=== PATIENT | female | born 1980 | race Caucasian/White ===

== ENCOUNTER 2020-02-02 01:34 | Inpatient (IN) | payer BC, SELFPAY ==
[2020-02-02] VITALS (10 sets, daily range): BP systolic 94–120; BP diastolic 53–79; PULSE 67–86; RESP 16–20; TEMP 36.4–37; O2SAT 96–100; BMI 23.3
--- NOTE | 2020-02-02 02:06 | XR_ITS ---
WS: [id number] XR chest 1V portable [id number] REASON FOR EXAM: Chills FINDINGS: The heart mediastinum are normal. Comparisons were made to February 02, 2020 Overriding the left upper abdomen is a calcified density appears to be in the soft tissue. There is no pneumonia, pleural effusion, pulmonary edema, The hilum and apices are normal. XR/XR chest 1V portable [id number] IMPRESSION: Negative chest for acute findings. Calcified density overriding the left upper abdomen.
--- NOTE | 2020-02-02 02:08 | ED_ITS ---
HPI - Abdominal Pain General: Chief Complaint: Abdominal Pain Stated Complaint: abd pain Time Seen by Provider: 02/02/20 01:51 Source: patient and family Mode of arrival: ambulatory Limitations: no limitations History of Present Illness: HPI narrative: Laurel is a nice 39-year-old female who comes in complaining of abdominal pain. Abdominal pain began about 6 PM last night and is gotten progressively worse since that time. She has associated nausea and vomiting and is vomited several times. She denies any hematic emesis. She felt at one point that she may have diarrhea but has still not had a bowel movement. She denies any diarrhea or constipation, fevers or chills, vaginal discharge or bleeding, urinary frequency/urgency or dysuria. Associated Symptoms: Reports nausea and vomiting; Denies chills, coffee ground emesis, constipation, GI cramping, diarrhea, dysuria, fever(s), heartburn, hematochezia, hematuria, hematemesis, melena and syncope Related Data: Date of Last Menstrual Period: 01/22/20 Review of Systems Const: Denies: fever(s), chills, body aches, fatigue, malaise or diaphoresis Eyes: Denies: change in vision, blurry vision, blind spots, photophobia, eye discharge or eye redness ENMT: Denies: throat pain, odynophagia, hoarseness, swelling of lips/tongue, oral sores, ear or mastoid pain, ear discharge, change in hearing or nasal discharge Card: Denies: chest pain, palpitations, irregular heart rhythm, edema, lightheadedness, syncope, pre-syncope, dyspnea on exertion or orthopnea Resp: Denies: dyspnea, productive cough, non-productive cough, wheezing, hemoptysis or chest congestion GI: Reports: abdominal pain, nausea and vomiting; Denies: hematemesis, coffee ground emesis, heartburn, diarrhea, constipation, GI cramping, hematochezia or melena : Denies: flank pain, dysuria, urinary frequency, urinary urgency or hematuria Musc: Denies: neck pain, back pain, extremity pain, extremity swelling, joint pain, joint swelling, joint redness, joint warmth or joint stiffness Skin/Breast: Denies: rash, pruritus, erythema, skin tenderness or jaundice Neuro: Denies: headache(s), numbness in extremities, weakness in extremities, sensory changes, lack of coordination, difficulty walking, dizziness, vertigo, confusion, Slurred speech present or seizure-like activity [place]/Lymph: Denies: easy bruising, easy bleeding, petechiae, purpura or enlarged lymph nodes All/Imm: Denies: urticaria, throat swelling, tongue swelling, facial swelling or acute wheezing PFSH ED PFSH: Medical History Thrombocytosis Surgical History H/O splenectomy Social History Smoking and tobacco status: never smoked Female Reproductive History: Date of last menstrual period: 01/22/20 Physical Exam Const: COMMON NORMALS: no acute distress, patient oriented x3, no limitations, healthy appearing and well nourished GENERAL APPEARANCE: cooperative, well kempt and well developed HENMT: COMMON NORMALS: normocephalic, atraumatic, external ears normal, EAC's normal and Normal external nose present HEAD & SCALP: normal to inspection, normocephalic and atraumatic FACE & SINUS: normal facial exam and face symmetric NOSE: Normal external nose present and Normal nares present EXTERNAL EAR: Yes external ears normal EXTERNAL AUDITORY CANAL: EAC's normal MOUTH: Normal oral and palatal mucosa present, lip normal and tongue normal Eye: COMMON NORMALS: Equal, round and reactive pupils present and conjunctivae normal GENERAL EYE: appearance normal, both eyes and all related structures ALIGNMENT: Yes alignment normal PERIORBITAL: periorbital findings normal EYELID: eyelids normal CONJUNCTIVA: Yes conjunctivae normal SCLERA: sclerae normal PUPIL: Yes Equal, round and reactive pupils present Neck/C-Spine: COMMON NORMALS: full ROM, no lymphadenopathy, supple, no meningeal signs and no JVD GENERAL: Yes normal visual inspection and Yes trachea midline Chest: COMMONS NORMALS: normal inspection of the chest and normal palpation of entire chest wall Resp: COMMON NORMALS: normal respiratory effort, No retractions and No use of accessory muscles EFFORT & INSPECTION: Yes able to speak in complete sentences and Yes symmetric chest movement AUSCULTATION: no crackles, no rales, no rhonchi and no wheezes Cardio: COMMON NORMALS: no JVD, regular rate, regular rhythm, S1 normal heart sound present and S2 normal heart sound present RATE: regular rate RHYTHM: regular rhythm HEART SOUNDS: S1 normal heart sound present, S2 normal heart sound present, no click, no gallops, no murmurs, no rubs and abnormal split S2 GI: COMMON NORMALS: Soft to palpation and No hepatosplenomegaly present PALPATION: Yes Soft to palpation, Yes Tenderness to palpation present (GI) (Mild in the epigastric area), No Guarding due to palpation present (GI), No Rigid due to palpation, Yes No hepatosplenomegaly present, No Hernia present, No Palpable mass present and No Pulsatile mass present : COMMON NORMALS: Yes no CVA tenderness BLADDER/KIDNEY EXAM: Yes no CVA tenderness EXTERNAL FEMALE EXAM: No Hernia present Back/Pelvis: COMMON NORMALS: no CVA tenderness, thoracic and lumbar spine normal to inspection, no thoracic nor lumbar tenderness and thoraco-lumbar ROM normal Extremity: COMMON NORMALS: normal to inspection, full ROM, capillary refill normal, no joint enlargement, no clubbing, cyanosis or edema and no calf tenderness Neuro: COMMON NORMALS: patient oriented x3, CN's II-XII intact bilaterally, moves all extremities, no focal motor deficits and no sensory deficits noted MENINGEAL SIGNS: Yes no meningeal signs SPEECH: speech normal Psych: COMMON NORMALS: mental status grossly normal, Normal thought process present, cooperative, normal affect, speech normal and activity/motor behavior normal APPEARANCE: Yes well kempt SPEECH: Yes normal speech THOUGHT PROCESS: Normal thought process present Skin: COMMON NORMALS: no rashes or lesions noted, turgor normal, no jaundice, no petechiae and no mottling GENERAL SKIN EXAM: no rashes or lesions noted and turgor normal Course Vital Signs: Vital signs: Vital Signs Temperature 97.6 F 02/02/20 01:56 Pulse Rate 86 02/02/20 05:17 Respiratory Rate 16 02/02/20 05:17 Blood Pressure 120/53 02/02/20 05:17 Pulse Oximetry 100 02/02/20 05:17 MDM - Abdominal Pain MDM Narrative: Medical decision making narrative: Laurel is a nice 39-year-old female comes in with abrupt onset abdominal pain with vomiting. I discussed both ultrasound and the CT scan with radiologist who states that nothing is tremendously impressive. He thinks that the periportal edema is likely from aggressive hydration. See his addendum for details. I have reviewed the case with both Drs. Valdez and Anne they agreed to admit and consult respectively. The patient's been empirically covered for sepsis especially encapsulated gram-positive organisms. Is currently feeling better. Lab Data: Attestation: I reviewed the patient's lab results. Labs: Lab Results 02/02/20 02/02/20 02/02/20 Range/Units 01:52 01:52 01:52 WBC 24.8 H (4.0-10.0) 10^3/ uL RBC 4.15 (4.1-5.3) 10^6/u L Hgb 10.0 L (11.5-15.3) g/dL Hct 32.2 L (37.0-47.0) % MCV 77.6 L (81-99) fL MCH 24.1 L (28.0-34.0) pg MCHC 31.1 (30.0-36.0) g/dL RDW 16.2 H (12.1-15.1) % Plt Count 565 H (130-400) 10^3/c mm MPV 11.3 H (7.4-10.4) fL Neut % (Auto) 84.3 % Lymph % (Auto) 8.2 % [place] % (Auto) 6.1 % Eos % (Auto) 0.5 % Baso % (Auto) 0.4 % Neut # (Auto) 20.9 H (1.8-7.7) 10^3/u L Lymph # (Auto) 2.0 (0.8-4.8) 10^3/u L [place] # (Auto) 1.5 H (0.2-0.9) 10^3/u L Eos # (Auto) 0.1 (0.0-0.8) 10^3/u L Baso # (Auto) 0.1 (0.0-0.1) 10^3/u L Nucleated RBC % (a uto) 0 % Nucleated RBCs # 0.0 /100WBC Sodium 137 (136-145) mmol/L Potassium 4.0 (3.5-5.1) mmol/L Chloride 102 (98-107) mmol/L Carbon Dioxide 23 (22-29) mmol/L Anion Gap 16.0 (5-19) BUN 13 (6-20) mg/dL Creatinine 0.8 (0.5-0.9) mg/dL GFR Calculation 79.9 L (90-130) mL/min Glucose 180 H (65-115) mg/dL Calculated Osmolal ity 285 (285-295) mOsm/k g Lactic Acid (0.5-2.2) mmol/L Calcium 9.3 (8.5-10.5) mg/dL Total Bilirubin 0.2 (0.15-1.2) mg/dL AST 80 H (0-32) U/L ALT 41 H (0-33) U/L Alkaline Phosphata se 65 (35-105) IU/L Total Protein 7.0 (6.6-8.7) g/dL Albumin 4.8 (3.5-5.2) g/dL Globulin 2.2 (1.3-4.6) g/dL Lipase 23 (13-60) U/L HCG, Qual Negative (Negative) Urine Color (Yellow) Urine Appearance (CLEAR) Urine pH (5-7) Ur Specific Gravit y (1.005-1.030) Urine Protein (Negative) Urine Glucose (UA) (Normal) Urine Ketones (Negative) Urine Blood (Negative) Urine Nitrate (Negative) Urine Bilirubin (NEGATIVE) Urine Urobilinogen (Negative) mg/dL Ur Leukocyte Kelsey ase (Negative) H. pylori IgG Anti body (Negative) 02/02/20 02/02/20 02/02/20 Range/Units 01:52 01:52 03:50 WBC (4.0-10.0) 10^3/ uL RBC (4.1-5.3) 10^6/u L Hgb (11.5-15.3) g/dL Hct (37.0-47.0) % MCV (81-99) fL MCH (28.0-34.0) pg MCHC (30.0-36.0) g/dL RDW (12.1-15.1) % Plt Count (130-400) 10^3/c mm MPV (7.4-10.4) fL Neut % (Auto) % Lymph % (Auto) % [place] % (Auto) % Eos % (Auto) % Baso % (Auto) % Neut # (Auto) (1.8-7.7) 10^3/u L Lymph # (Auto) (0.8-4.8) 10^3/u L [place] # (Auto) (0.2-0.9) 10^3/u L Eos # (Auto) (0.0-0.8) 10^3/u L Baso # (Auto) (0.0-0.1) 10^3/u L Nucleated RBC % (a uto) % Nucleated RBCs # /100WBC Sodium (136-145) mmol/L Potassium (3.5-5.1) mmol/L Chloride (98-107) mmol/L Carbon Dioxide (22-29) mmol/L Anion Gap (5-19) BUN (6-20) mg/dL Creatinine (0.5-0.9) mg/dL GFR Calculation (90-130) mL/min Glucose (65-115) mg/dL Calculated Osmolal ity (285-295) mOsm/k g Lactic Acid 1.1 (0.5-2.2) mmol/L Calcium (8.5-10.5) mg/dL Total Bilirubin (0.15-1.2) mg/dL AST (0-32) U/L ALT (0-33) U/L Alkaline Phosphata se (35-105) IU/L Total Protein (6.6-8.7) g/dL Albumin (3.5-5.2) g/dL Globulin (1.3-4.6) g/dL Lipase (13-60) U/L HCG, Qual (Negative) Urine Color Yellow (Yellow) Urine Appearance Clear (CLEAR) Urine pH 6 (5-7) Ur Specific Gravit y 1.020 (1.005-1.030) Urine Protein Neg (Negative) Urine Glucose (UA) Norm (Normal) Urine Ketones 2+ H (Negative) Urine Blood Neg (Negative) Urine Nitrate Negative (Negative) Urine Bilirubin Neg (NEGATIVE) Urine Urobilinogen Norm (Negative) mg/dL Ur Leukocyte Kelsey ase Negative (Negative) H. pylori IgG Anti body Negative (Negative) Imaging Data ^: CXR: My impression: No acute cardiopulmonary findings. US: Radiologist's impression: [address] [address] Ultrasound Report Signed Patient: Laurel Fleming Unit #: [id number] : 1980 Age/Sex: 39 / F ADM Date: 02/02/20 Loc: ER Room/Bed: Attending Dr: Ordering Provider/Ordering MD: Gretel Portillo DO Date of Service: 02/02/20 Procedure(s): US abdomen complete* [id number] Accession Number(s): [id number] Report Number: [id number] PROCEDURE INFORMATION: Exam: US Abdomen Complete Exam date and time: 02/02/2020 5:17 AM Age: 39 years old Clinical indication: Abdominal pain; Acute TECHNIQUE: Imaging protocol: Real-time ultrasound of the abdomen with image documentation. COMPARISON: No relevant prior studies available. FINDINGS: Liver: The liver is unremarkable. Gallbladder: The gallbladder is decompressed. There are no stones. There is no wall thickening or pericholecystic fluid. Common bile duct: The common bile duct is not visible. The common hepatic duct measures 5 mm diameter. Pancreas: The visible portion of the pancreas is unremarkable. Right kidney: The right kidney is unremarkable. Left kidney: The left kidney is unremarkable. Spleen: Spleen has been removed. Aorta: The visible portion of the proximal abdominal aorta is unremarkable. Inferior vena cava: The visible portion of the proximal IVC is unremarkable. Portal venous: Portal vein is patent. US/US abdomen complete* [id number] IMPRESSION: No acute findings. Dictated By: Rudy Beckford MD Signed By: Rudy Beckford MD Signed Date/Time: 02/02/20 0539 DD/ 0537 CT Abd/Pel: Radiologist's impression: [address] [address] [address] Scan Report Signed Patient: Laurel Fleming Unit #: [id number] : 1980 Age/Sex: 39 / F ADM Date: 02/02/20 Loc: ER Room/Bed: Attending Dr: Ordering Provider/Ordering MD: Gretel Portillo DO Date of Service: 02/02/20 Procedure(s): CT abdomen pelvis w con* [id number] Accession Number(s): [id number] Report Number: [id number] PROCEDURE INFORMATION: Exam: CT Abdomen And Pelvis With Contrast Exam date and time: 02/02/2020 3:52 AM Age: 39 years old Clinical indication: Nausea and vomiting; Abdominal pain; Generalized; Prior surgery; Surgery type: Spleenectomy TECHNIQUE: Imaging protocol: Computed tomography of the abdomen and pelvis with intravenous contrast. Radiation optimization: All CT scans at this facility use at least one of these dose optimization techniques: automated exposure control; mA and/or kV adjustment per patient size (includes targeted exams where dose is matched to clinical indication); or iterative reconstruction. Contrast material: OMNI 300; Contrast volume: 95 ml; Contrast route: INTRAVENOUS (IV); COMPARISON: No relevant prior studies available. RADIATION DOSE METRICS: Total DLP (mGy-cm): 667.67 FINDINGS: Lungs: Lung bases are clear. Liver: Mild diffuse periportal edema. Intermediate density 1.7 x 1.3 cm mass in the posterior superior aspect of the right lobe of the liver just beneath the capsule. Gallbladder and bile ducts: The gallbladder is normal. There is no biliary dilation. Pancreas: The pancreas is unremarkable. Spleen: The spleen is absent. Adrenals: The adrenal glands are unremarkable. Kidneys and ureters: The kidneys are unremarkable. No hydronephrosis or stones. No ureteral dilation. Stomach and bowel: The stomach is unremarkable. There is fecalization of small bowel contents in the pelvis with a short segment of fluid distended upstream small bowel. No transition point to suggest obstruction. No can small bowel dilation. No sign of inflammation. The colon is unremarkable. Appendix: The appendix is normal. Intraperitoneal space: There is no free air or significant intraperitoneal free fluid. Vasculature: The abdominal aorta is normal. There is no aneurysm or dissection. Lymph nodes: There is no lymphadenopathy in the retroperitoneum, mesentery, pelvis or inguinal regions. Bladder: The urinary bladder is decompressed, preventing meaningful evaluation of wall thickness. Reproductive: 2 cm corpus luteum in the right ovary. No significant adnexal mass or cyst. The uterus is unremarkable. Bones/joints: Bones are unremarkable. Soft tissues: The abdominal wall is intact. CT/CT abdomen pelvis w con* [id number] IMPRESSION: 1. Fecalization of distal small bowel contents with mild fluid distention of upstream small bowel suggesting focal ileus. Obstruction is not suspected. 2. Mild diffuse periportal edema. Differential diagnosis includes passive hepatic congestion, acute viral hepatitis, cholangitis, lymphatic obstruction in the ira hepatis, and iatrogenic systemic hypervolemia. 3. Splenectomy. 4. Nonspecific right lobe liver mass. Recommend further evaluation with liver MRI. Radiation Dose CTDIVOL = (mGy): DLP = 667.67 (mGy-cm) Dictated By: Rudy Beckford MD Signed By: Rudy Beckford MD Signed Date/Time: 02/02/20507 DD/ 5 Discharge Plan Discharge Patient Disposition: Admitted As Inpatient Admit Provider: Mani Valdez Clinical Impression: Sepsis, Abdominal pain Condition: Stable Coding Level of Care Code ED Process Engineering Intern for Chg Fwd Exam Comprehensive
[2020-02-02 02:34] LABS: Basophils # 0.1 10^3/uL (0.0-0.1); Basophils % 0.4 %; Eosinophils # 0.1 10^3/uL (0.0-0.8); Eosinophils % 0.5 %; Hematocrit 32.2 % (37.0-47.0); Lymphocytes % 8.2 %; Mean Corpuscular HGB Conc 31.1 g/dL (30.0-36.0); Mean Corpuscular Hemoglobin 24.1 pg (28.0-34.0); Mean Corpuscular Volume 77.6 fL (81-99); Mean Platelet Volume 11.3 fL (7.4-10.4); Monocytes # 1.5 10^3/uL (0.2-0.9); Monocytes % 6.1 %; Neutrophils # 20.9 10^3/uL (1.8-7.7); Neutrophils % 84.3 %; Nucleated Red Blood Cells % 0 %; Platelet Count 565 10^3/cmm (130-400); Red Blood Count 4.15 10^6/uL (4.1-5.3); Red Cell Distribution Width 16.2 % (12.1-15.1); Slide Review Slide Review Perform; White Blood Count 24.8 10^3/uL (4.0-10.0)
[2020-02-02 02:38] LABS: Lactic Sepsis W/Reflex 1.1 mmol/L (0.5-2.2)
[2020-02-02 02:41] LABS: H. Pylori IgG Antibody Negative (Negative); HCG, Serum Qual Negative (Negative)
[2020-02-02 02:43] LABS: Alanine Aminotransferase 41 U/L (0-33); Albumin Level 4.8 g/dL (3.5-5.2); Alkaline Phosphatase 65 IU/L (35-105); Aspartate Amino Transferase 80 U/L (0-32); Blood Urea Nitrogen 13 mg/dL (6-20); Calcium 9.3 mg/dL (8.5-10.5); Carbon Dioxide 23 mmol/L (22-29); Chloride 102 mmol/L (98-107); Globulin 2.2 g/dL (1.3-4.6); Glomerular Filtration Rate 79.9 mL/min (90-130); Glucose 180 mg/dL (65-115); Lipase 23 U/L (13-60); Osmolality Calculated 285 mOsm/kg (285-295); Sodium 137 mmol/L (136-145); Total Bilirubin 0.2 mg/dL (0.15-1.2)
[2020-02-02] MEDS: morphine 4 mg/mL SDV 1 mL IVP (03:23)
[2020-02-02] MEDS: ondansetron 2 mg/ML SDV 2 mL 4 MG IVP ×3 (03:24→17:10)
[2020-02-02] MEDS: piperacillin-tazobactam 3.375 GM in sodium chloride 0.9% (plus) 50 ML IV ×3 (03:24→17:58)
--- NOTE | 2020-02-02 03:47 | CTR_ITS ---
PROCEDURE INFORMATION: Exam: CT Abdomen And Pelvis With Contrast Exam date and time: 02/02/2020 3:52 AM Age: 39 years old Clinical indication: Nausea and vomiting; Abdominal pain; Generalized; Prior surgery; Surgery type: Spleenectomy TECHNIQUE: Imaging protocol: Computed tomography of the abdomen and pelvis with intravenous contrast. Radiation optimization: All CT scans at this facility use at least one of these dose optimization techniques: automated exposure control; mA and/or kV adjustment per patient size (includes targeted exams where dose is matched to clinical indication); or iterative reconstruction. Contrast material: OMNI 300; Contrast volume: 95 ml; Contrast route: INTRAVENOUS (IV); COMPARISON: No relevant prior studies available. RADIATION DOSE METRICS: Total DLP (mGy-cm): 667.67 FINDINGS: Lungs: Lung bases are clear. Liver: Mild diffuse periportal edema. Intermediate density 1.7 x 1.3 cm mass in the posterior superior aspect of the right lobe of the liver just beneath the capsule. Gallbladder and bile ducts: The gallbladder is normal. There is no biliary dilation. Pancreas: The pancreas is unremarkable. Spleen: The spleen is absent. Adrenals: The adrenal glands are unremarkable. Kidneys and ureters: The kidneys are unremarkable. No hydronephrosis or stones. No ureteral dilation. Stomach and bowel: The stomach is unremarkable. There is fecalization of small bowel contents in the pelvis with a short segment of fluid distended upstream small bowel. No transition point to suggest obstruction. No can small bowel dilation. No sign of inflammation. The colon is unremarkable. Appendix: The appendix is normal. Intraperitoneal space: There is no free air or significant intraperitoneal free fluid. Vasculature: The abdominal aorta is normal. There is no aneurysm or dissection. Lymph nodes: There is no lymphadenopathy in the retroperitoneum, mesentery, pelvis or inguinal regions. Bladder: The urinary bladder is decompressed, preventing meaningful evaluation of wall thickness. Reproductive: 2 cm corpus luteum in the right ovary. No significant adnexal mass or cyst. The uterus is unremarkable. Bones/joints: Bones are unremarkable. Soft tissues: The abdominal wall is intact. CT/CT abdomen pelvis w con* [id number] IMPRESSION: 1. Fecalization of distal small bowel contents with mild fluid distention of upstream small bowel suggesting focal ileus. Obstruction is not suspected. 2. Mild diffuse periportal edema. Differential diagnosis includes passive hepatic congestion, acute viral hepatitis, cholangitis, lymphatic obstruction in the ira hepatis, and iatrogenic systemic hypervolemia. 3. Splenectomy. 4. Nonspecific right lobe liver mass. Recommend further evaluation with liver MRI. Radiation Dose CTDIVOL = (mGy): DLP = 667.67 (mGy-cm)
[2020-02-02] MEDS: iohexol 300 mg/mL 100 mL Btl IV (04:05)
[2020-02-02 04:15] LABS: Add Urine Microscopic? NO
[2020-02-02 04:20] LABS: Bilirubin Urine Neg (NEGATIVE); Blood Urine Neg (Negative); Glucose Urine UA Norm (Normal); Ketones Urine 2+ (Negative); Leukocyte Esterase Urine Negative (Negative); Nitrate Urine Negative (Negative); Protein Urine Neg (Negative); Urine Appearance Clear (CLEAR); Urine Color Yellow (Yellow); Urobilinogen Urine Norm (Negative); pH Urine 6 (5-7)
--- NOTE | 2020-02-02 06:03 | PM.CONSULT ---
Providers/Reason For Consult Consulting Physican/Specialty*: Liang Malhotra MD Reason for Consult*: Abdominal pain Requesting Physcian: Dr. 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 General surgery was consulted for further evaluation of the patient due to her abdominal pain Upon further inquiry the patient and her spouse confirmed that she has been updated on her triple vaccines she did receive prior to her elective splenectomy her spouse keeping a log for that. Blood work patient was found to have leukocytosis and there is a concern of potential infection due to the patient's history of splenectomy. Patient denies any fevers or chills at this at she does report some nausea Patient was seen and evaluated in the emergency department room (7). Ultrasound of the liver and gallbladder FINDINGS: Liver: The liver is unremarkable. Gallbladder: The gallbladder is decompressed. There are no stones. There is no wall thickening or pericholecystic fluid. Common bile duct: The common bile duct is not visible. The common hepatic duct measures 5 mm diameter. Pancreas: The visible portion of the pancreas is unremarkable. Right kidney: The right kidney is unremarkable. Left kidney: The left kidney is unremarkable. Spleen: Spleen has been removed. Aorta: The visible portion of the proximal abdominal aorta is unremarkable. Inferior vena cava: The visible portion of the proximal IVC is unremarkable. Portal venous: Portal vein is patent. US/US abdomen complete* [id number] IMPRESSION: No acute findings. CT scan of the abdomen and pelvis showed Lungs: Lung bases are clear. Liver: Mild diffuse periportal edema. Intermediate density 1.7 x 1.3 cm mass in the posterior superior aspect of the right lobe of the liver just beneath the capsule. Gallbladder and bile ducts: The gallbladder is normal. There is no biliary dilation. Pancreas: The pancreas is unremarkable. Spleen: The spleen is absent. Adrenals: The adrenal glands are unremarkable. Kidneys and ureters: The kidneys are unremarkable. No hydronephrosis or stones. No ureteral dilation. Stomach and bowel: The stomach is unremarkable. There is fecalization of small bowel contents in the pelvis with a short segment of fluid distended upstream small bowel. No transition point to suggest obstruction. No can small bowel dilation. No sign of inflammation. The colon is unremarkable. Appendix: The appendix is normal. Intraperitoneal space: There is no free air or significant intraperitoneal free fluid. Vasculature: The abdominal aorta is normal. There is no aneurysm or dissection. Lymph nodes: There is no lymphadenopathy in the retroperitoneum, mesentery, pelvis or inguinal regions. Bladder: The urinary bladder is decompressed, preventing meaningful evaluation of wall thickness. Reproductive: 2 cm corpus luteum in the right ovary. No significant adnexal mass or cyst. The uterus is unremarkable. Bones/joints: Bones are unremarkable. Soft tissues: The abdominal wall is intact. CT/CT abdomen pelvis w con* [id number] IMPRESSION: 1. Fecalization of distal small bowel contents with mild fluid distention of upstream small bowel suggesting focal ileus. Obstruction is not suspected. 2. Mild diffuse periportal edema. Differential diagnosis includes passive hepatic congestion, acute viral hepatitis, cholangitis, lymphatic obstruction in the ira hepatis, and iatrogenic systemic hypervolemia. 3. Splenectomy. 4. Nonspecific right lobe liver mass. Recommend further evaluation with liver MRI. Review of Systems General: Reports: 10 or more systems reviewed and unremarkable except in HPI and below Meds/Allergies Home Medications and Allergies Home Medications Medication Instructions Recorded Confirmed Last Taken Type No Known Home Medications 02/02/20 02/02/20 Unknown History Allergies Allergy/AdvReac Type Severity Reaction Status Date / Time No Known Allergies Allergy Verified 02/02/20 12:57 PFSH Acute PFSH: Medical History Thrombocytosis Surgical History H/O splenectomy Family History Father Cancer Sarcoma Leukemia Social History Smoking and tobacco status: never smoked Alcohol intake: current Alcohol intake frequency: holidays/special occasions only Substance/Drug Use: never Household members: spouse Marital status: Current occupational status: other 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 Female Reproductive History: Date of last menstrual period: 01/22/20 Vitals/I&O/Wt Last Vital Signs Temp 97.6 F 02/02/20 01:56 Pulse 86 02/02/20 05:17 Resp 16 02/02/20 05:17 BP 120/53 02/02/20 05:17 Pulse Ox 100 02/02/20 05:17 Weight last 48 hrs Weight 158 lb Physical Exam Narrative: EXAM NARRATIVE: Patient is conscious alert oriented X3 BMI 23 Head and neck examination PERRLA no masses no cervical lymphadenopathy no jaundice Cardiac examination audible S1-S2 no murmurs no gallops no arrhythmias Chest is clear bilateral,abscence of Rhonchi or wheezes,no surgical emphysema Abdomen mildly tender nondistended soft no organomegaly guarding or rigidity/no signs of peritonitis Extremities no cyanosis no clubbing no edema Data Micro: Micro: Microbiology 02/02/20 03:30 Blood Culture - Pr eliminary Blood SPECIMEN [facility] 02/02/20 01:52 Blood Culture - Pr eliminary Blood SPECIMEN [facility] A&P Assessment and plan (1) Abdominal pain: After thorough history physical examination and reviewing the chart and CT scan images with my personal interpretation,likley the patient's abdominal pain due to Fecalization of the small bowel and chronic constipation.. I would highly recommend to start the patient on mag citrate a bottle every 8 hours, if patient started to have nausea NG tube can be placed and mag citrate can be installed via the NG tube. I would refrain from performing enemas on splenectomized or any other immunocompromised patients to avoid abrasions or potential trauma of the anal area that can potentially cause bloodstream infection. We will continue to follow with repeated physical examination With regard to the leukocytosis could be due to different reasons postsplenectomy, dehydration and potential underlying infection yet I am not appreciating acute surgical abdomen at this explain patient's leukocytosis, further work-up may include ruling out other medical causes will defer to hospitalist service with that regard. Assurance and education All questions have been answered and all concerns have been addressed to patient's satisfaction. Status: Acute Qualifiers: Abdominal location: generalized Qualified Code(s): R10.84 - Generalized abdominal pain Consult Attestations Medical Necessity Statement: Per hospitalist service Time Spent in Patient Care: 16 - 35 minutes (>than 50% of time spent in counselling and/or direct pt care on unit). 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
[2020-02-02] MEDS: metroNIDAZOLE IV 500 MG/100 ML PREMIX 100 MG IV (06:18)
[2020-02-02 06:22] LABS: Acetaminophen < 5.0 ug/mL (10-30); Alcohol Level < 10 mg/dL (0-10)
--- NOTE | 2020-02-02 06:35 | PM.HP ---
Providers/Chief Complaint Admitting Physician: Mani Valdez Chief Complaint: abd pain History of Present Illness Laurel Fleming is a 39 year old female with history of splenectomy, thrombocytosis for which she is on ASA 81mg, came to the hospital after feeling unwell immediately after eating a dinner of broccoli and rice (broccoli cooked night before, rice same night), with nausea, vomiting, malaise, feeling weak and cold. Subsequently reportedly found her by the toilet passed out, which she thinks she had letter sent down to the ground, but is not sure. then witnessed about episode of what he thought was perhaps a seizure, where she became somewhat unresponsive had difficulty speaking, was shaking all over, although did ask what is happening to me just before the end of the episode. She denies any fever at home. She denies eating out anywhere. Her other meal included a meal tray with a fish fillet which also came with some rice earlier in the day. She otherwise has been in baseline state of health. Of note on closer questioning later she also admitted that she had teeth cleaning done on Wednesday. In ER she is noted with very high leukocytosis, 24.8, with neutrophilia. She is afebrile, however, still having malaise. Abdominal pain has since resolved. Pain was previously periumbilical to epigastric. and she has been concerned whether aspirin may have caused some ulcer or gastritis. CT abdomen pelvis was obtained with severe constipation and fecal isolation of distal small intestine. Also noted periportal edema of unclear etiology as well as liver lesion which per discussion with radiologist is thought to be perhaps hemangioma or other benign etiology. Per discussion with family states that she has had history of liver hemangioma in the past. Abdominal ultrasound was obtained and is pending. Blood cultures were collected and she is empirically started on antibiotics. There is mild AST and ALT elevation noted. Hepatitis panel was requested. Review of Systems Const: Denies: fever(s), chills, body aches or malaise Eyes: Denies: change in vision or eye redness ENMT: Denies: throat pain, oral sores or ear or mastoid pain Card: Denies: chest pain, edema, pre-syncope or dyspnea on exertion Resp: Denies: dyspnea, productive cough, change in phlegm color or hemoptysis GI: Denies: abdominal pain, nausea, vomiting, diarrhea, constipation, hematochezia or melena : Denies: flank pain, urinary frequency or hematuria Musc: Denies: back pain, joint swelling or joint redness Skin/Breast: Denies: rash, sores or new lesions Neuro: Denies: headache(s), numbness in extremities, weakness in extremities, dizziness, confusion or seizure-like activity Endo: Denies: polyuria or polydipsia Jenaro/Lymph: Denies: easy bleeding or purpura All/Imm: Denies: urticaria, throat swelling or tongue swelling Medications/Allergies Home Medications Medication Instructions Recorded Confirmed Last Taken Type No Known Home Medications 02/02/20 02/02/20 Unknown History Allergies Allergy/AdvReac Type Severity Reaction Status Date / Time No Known Allergies Allergy Verified 02/02/20 02:00 PFSH Acute PFSH: Medical History Thrombocytosis Surgical History H/O splenectomy Family History Father Cancer Sarcoma Leukemia Social History Smoking and tobacco status: never smoked Alcohol intake: current Alcohol intake frequency: holidays/special occasions only Substance/Drug Use: never Household members: spouse Marital status: Current occupational status: other 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 Female Reproductive History: Date of last menstrual period: 01/22/20 Vitals/I&O/Wt Last Vital Signs Temp 97.6 F 02/02/20 01:56 Pulse 86 02/02/20 05:17 Resp 16 02/02/20 05:17 BP 115/56 02/02/20 06:00 Pulse Ox 98 02/02/20 06:00 Weight last 48 hrs Weight 71.668 kg Physical Exam Const: COMMON NORMALS: no acute distress and patient oriented x3 OTHER: Malaise HENMT: COMMON NORMALS: oropharynx normal Neck/C-Spine: COMMON NORMALS: no JVD Resp: COMMON NORMALS: normal respiratory effort and clear to auscultation bilaterally AUSCULTATION: clear to auscultation bilaterally Cardio: COMMON NORMALS: no JVD, regular rhythm, S1 normal heart sound present, S2 normal heart sound present and No murmurs present (Cardio) RHYTHM: regular rhythm HEART SOUNDS: S1 normal heart sound present and S2 normal heart sound present GI: COMMON NORMALS: Normal to inspection, nondistended, normoactive bowel sounds present, Soft to palpation and non-tender PALPATION: Yes Soft to palpation Extremity: COMMON NORMALS: no joint enlargement and no pedal edema Neuro: COMMON NORMALS: patient oriented x3 and moves all extremities Skin: COMMON NORMALS: no rashes or lesions noted GENERAL SKIN EXAM: no rashes or lesions noted Data : 02/02/20 01:52 02/02/20 01:52 Micro: Microbiology 02/02/20 03:30 Blood Culture - Preliminary Blood SPECIMEN COLLECTED 02/02/20 01:52 Blood Culture - Preliminary Blood SPECIMEN COLLECTED A&P Assessment and plan (1) Sepsis: She does not strictly fit sepsis criteria, suspicion is very high for developing sepsis, with leukocytosis 24.8, respiratory rate of 20, severe malaise, nausea, vomiting, with history of splenectomy. With episode of altered mental status at home (syncope versus seizure). Blood cultures collected. Lactic acid is normal. She is started on Zosyn and vancomycin empirically at this time. Nausea and vomiting at home, malaise may have been secondary to preformed toxin as her symptoms started right after eating a meal consisting of broccoli and rice (broccoli cooked the day before), however, there are number of other complicating historical factors including that she had her teeth cleaned on Wednesday and in the setting of aspleni is at high risk for overwhelming bacterial infection. There is also severe constipation, with fecalization of small intestine. Appreciate surgical assessment. This certainly sometimes can contribute to leukocytosis, nausea, vomiting, malaise. Continue IV hydration. Bowel regimen. Status: Acute Qualifiers: Sepsis acute organ dysfunction status: without acute organ dysfunction Sepsis type: sepsis due to unspecified organism Qualified Code(s): A41.9 - Sepsis, unspecified organism (2) Abdominal pain: Nausea, vomiting, periumbilical to epigastric abdominal tenderness/pain, currently resolved, but still persistent malaise. As has stated certainly aspirin could contribute sometimes to gastritis, PUD, although should not necessarily cause other findings we are seeing. Add PPI. Also obstipation as above. Periportal edema noted on CT incidentally. Appreciate surgical evaluation. Per discussion with radiology this is rather nonspecific, no signs of acute liver inflammation. She did have a possibly syncopal episode at home, however, does not have tenderness on exam to suggest external liver contusion, no bleeding noted on CT. Follow elevated liver parameters. Status: Acute Qualifiers: Abdominal location: generalized Qualified Code(s): R10.84 - Generalized abdominal pain (3) H/O splenectomy: With concern for malignant disease initially, but benign findings on pathology. 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 Due to this she takes a low-dose aspirin. Status: Acute (5) Syncope: Syncopal episode versus a seizure at home. states lasting perhaps about 30 seconds during which time she was unresponsive, shaking, eyes rolling back in her head. She apparently did ask what is happening to me at the end of the episode, although then still had trouble speaking for little bit. This has not recurred so far. Monitor. Maintain seizure precautions. Will assess plain CT of the head for now. Consider additional evaluation by MRI. This may be related to sepsis and acute condition so for now we will treat as above, not yet initiate antiepileptic. Status: Acute (6) Transaminitis: Possibly stress related, nausea, vomiting. Reassess. Acetaminophen and alcohol level were ordered. Hepatitis panel was ordered. There is nonspecific periportal edema of unclear etiology. Please follow studies above. Please follow final ultrasound report. Consider additional studies depending on clinical condition. This may be edema simply due to fluid resuscitation. Status: Acute (7) Liver lesion: Intermediate density 1.7 x 1.3 cm mass in the posterior superior aspect of the right lobe of the liver. Prescription with radiology probably benign, possibly hemangioma. Did not appear like liver abscess. Please follow-up final abdominal ultrasound study. Please consider additional evaluation, possibly MRI depending on clinical findings. does relate that she has history of liver hemangioma in the past. 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
[2020-02-02 06:43] LABS: Hepatitis A Antibody IgM Non-Reactive (Nonreactive); Hepatitis B Core AB, Total Non-Reactive (Nonreactive); Hepatitis B Surface AB 3.5 (0-8.5); Hepatitis B Surface Antigen Non-Reactive (Nonreactive); Hepatitis C Virus Antibody Non-Reactive (Nonreactive)
--- NOTE | 2020-02-02 06:48 | CT_ITS ---
WS: [id number] CT head wo con* [id number] REASON FOR EXAM: fall, possible seizure IV CONTRAST ADMINISTERED: None. TOTAL EXAM DLP: 880.[address] scans at [facility] use at least one of these dose optimization techniques: automat ed exposure control; mA and/or kV adjustment per patient size (includes targeted exams where dose is matched to clinical indication); or iterative reconstruction. FINDINGS: The velasco and white matter interfaces are normal. No evidence of hemorrhage, infarction, or mass effect. The ventricles are normal no paraventricular changes are seen. The hippocampus show no abnormalities. The peripheral brain show no abnormalities or hemorrhage. The posterior fossa show normal sonny and cerebellum. The paranasal sinuses are all normal. C1-C2 normal. The orbits show no abnormalities. The pituitary was normal. The mastoid air cells were all normal. CT/CT head wo con* [id number] IMPRESSION: Normal CT of the brain
[2020-02-02] MEDS: heparin 5,000 unit/mL INJ 1 mL 5000 UNIT SUBCUT ×2 (07:39→17:11)
[2020-02-02] MEDS: dextrose 5%-sod chloride 0.45% 1,000 ML 100 ML IV ×2 (07:42→17:18)
[2020-02-02 08:01] LABS: Procalcitonin 0.05 ng/mL (0-0.5)
--- NOTE | 2020-02-02 09:44 | PC.CHAP ---
Pastoral Care Encounter/Spiritual Assessment Type of Contact [] Declined newswriter visit [] Patient/Family/Request visit [] Outpatient visit [] Follow-up visit [] Physician referral [] Code/Alert [x] Routine visit [] Staff referral [] Actively dying [] Patient sleeping [] Family support [] [] Out of room [] Palliative care [] [] Receiving care in room [] Pre-surgical visit [] Trauma [] Long length of stay [] ICU visit [] Other: Relational/Emotional Strength [] Patient feels connected with others/family/visitors/staff [] Distress [] Loneliness/isolation [] Abandonment Spirituality of Patient [] Person of Lori [] Attends Jew of their Lori [] Believes in Prayer [] Reads Bible or Orthodoxy materials [] There are Spiritual issues to be addressed Manager Statistics Interventions [x] Prayer [] Active listening [] Non-anxious presence [] Spiritual/emotional support [] Crisis/trauma care [] Spiritual counseling [] Bereavement support [] Provided bereavement packet [] Provided Bible/devotional materials [] Provided toy/stuffed animal, coloring book to patient or family member [] Provided Communion [] Anointing/[place] [] Salvation [x] Completed spiritual assessment [] Other: Impact on Illness or Injury [] Angry [] Fearful [] Anxious [] Often cries [] Exhaustion [] Unable to work [] Unable to attend synagogue [] Unable to walk/stand [] Unable to read [] Unable to drive [] Unable to eat/drink [] Unable to sleep [] Unable to be with family [] Patient intubated [] Other: Summary Patient a little cold- staff turned up heat and delivered an additional blanket. Patient received some medication to help with pain, waiting to see if it will help. Time spent with patient 10 min
--- NOTE | 2020-02-02 11:47 | PM.PN ---
Subjective Subjective: Interval history: Overnight labs and H&P reviewed. 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 With episode of altered mental status at home (syncope versus seizure). Blood negtaive to date. Continue Zosyn and vancomycin empirically at this time while undergoing sepsis w/up . There is also severe constipation, with fecalization of small intestine. Appreciate surgical assessment. Status: Acute Qualifiers: Sepsis acute organ dysfunction status: without acute organ dysfunction Sepsis type: sepsis due to unspecified organism Qualified Code(s): A41.9 - Sepsis, unspecified organism (2) Abdominal pain: Nausea, vomiting, periumbilical to epigastric abdominal tenderness/pain, currently resolved, but still persistent malaise. Periportal edema noted on CT incidentally. Appreciate surgical evaluation. Per discussion with radiology this is rather nonspecific, no signs of acute liver inflammation. Status: Acute Qualifiers: Abdominal location: generalized Qualified Code(s): R10.84 - Generalized abdominal pain (3) H/O splenectomy: With concern for malignant disease initially, but benign findings on pathology. 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 Due to this she takes a low-dose aspirin. Status: Acute (5) Syncope: Syncopal episode versus a seizure at home. states lasting perhaps about 30 seconds during which time she was unresponsive, shaking, eyes rolling back in her head. She apparently did ask what is happening to me at the end of the episode, although then still had trouble speaking for little bit. This has not recurred so far. Monitor. Maintain seizure precautions. CT head negative for acute pathology Status: Acute (6) Transaminitis: Possibly stress related, nausea, vomiting. Reassess. Acetaminophen and alcohol level were ordered. Hepatitis panel was ordered. There is nonspecific periportal edema of unclear etiology. Please follow studies above. Please follow final ultrasound report. Consider additional studies depending on clinical condition. This may be edema simply due to fluid resuscitation. Status: Acute (7) Liver lesion: Intermediate density 1.7 x 1.3 cm mass in the posterior superior aspect of the right lobe of the liver. Prescription with radiology probably benign, possibly hemangioma. Did not appear like liver abscess. Please follow-up final abdominal ultrasound study. Please consider additional evaluation, possibly MRI depending on clinical findings. does relate that she has history of liver hemangioma in the past. 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
[2020-02-02] MEDS: magnesium citrate Btl 296 mL PO ×2 (12:03→20:18)
[2020-02-02 12:55] LABS: Alkaline Phosphatase 95 IU/L (35-105); Anion Gap 15.1 (5-19); Blood Urea Nitrogen 9 mg/dL (6-20); Calcium 8.6 mg/dL (8.5-10.5); Carbon Dioxide 20 mmol/L (22-29); Chloride 104 mmol/L (98-107); Globulin 2.2 g/dL (1.3-4.6); Glomerular Filtration Rate 93.2 mL/min (90-130); Glucose 144 mg/dL (65-115); Osmolality Calculated 279 mOsm/kg (285-295); Potassium 4.1 mmol/L (3.5-5.1); Sodium 135 mmol/L (136-145); Total Bilirubin 0.5 mg/dL (0.15-1.2); Total Protein 6.2 g/dL (6.6-8.7)
[2020-02-02 13:06] LABS: Alanine Aminotransferase 788 U/L (0-33)
[2020-02-02 13:09] LABS: Aspartate Amino Transferase 1014 U/L (0-32)
[2020-02-02 15:30] LABS: Ammonia 36 umol/L (11-51); Lactate (Lactic Acid level) 0.6 mmol/L (0.5-2.2)
[2020-02-02 15:48] LABS: Alkaline Phosphatase 98 IU/L (35-105); Globulin 2.5 g/dL (1.3-4.6); Total Bilirubin 0.5 mg/dL (0.15-1.2); Total Protein 6.5 g/dL (6.6-8.7)
[2020-02-02 15:51] LABS: Monoscreen Negative (Negative)
[2020-02-02 16:19] LABS: Alanine Aminotransferase 766 U/L (0-33)
[2020-02-02 16:22] LABS: Aspartate Amino Transferase 914 U/L (0-32)
[2020-02-02 16:36] LABS: INR 1.11 (0.8-1.2)
[2020-02-02 18:27] LABS: Lactate Dehydrogenase 576 U/L (135-214)
[2020-02-03] VITALS: BP 115/72; PULSE 77; RESP 16; TEMP 36.8; O2SAT 99
[2020-02-03] MEDS: heparin 5,000 unit/mL INJ 1 mL 5000 UNIT SUBCUT ×4 (00:23→23:23)
[2020-02-03 01:19] LABS: Influenza A by IFA Negative (Negative); Influenza B by IFA Negative (Negative)
[2020-02-03] MEDS: piperacillin-tazobactam 3.375 GM in sodium chloride 0.9% (plus) 50 ML IV ×2 (03:32→11:15)
[2020-02-03] MEDS: dextrose 5%-sod chloride 0.45% 1,000 ML 100 ML IV ×3 (03:38→23:23)
[2020-02-03 04:00] VITALS: BP 115/72; PULSE 77; RESP 16; TEMP 36.8; O2SAT 99
[2020-02-03 05:09] LABS: Basophils # 0.1 10^3/uL (0.0-0.1); Basophils % 0.8 %; Eosinophils # 0.1 10^3/uL (0.0-0.8); Eosinophils % 0.6 %; Hematocrit 29.6 % (37.0-47.0); Lymphocytes # 1.7 10^3/uL (0.8-4.8); Lymphocytes % 19.6 %; Mean Corpuscular HGB Conc 30.4 g/dL (30.0-36.0); Mean Corpuscular Hemoglobin 23.2 pg (28.0-34.0); Mean Corpuscular Volume 76.3 fL (81-99); Monocytes # 1.1 10^3/uL (0.2-0.9); Monocytes % 12.5 %; Neutrophils # 5.8 10^3/uL (1.8-7.7); Neutrophils % 66.3 %; Nucleated Red Blood Cells % 0 %; Platelet Count 504 10^3/cmm (130-400); Red Blood Count 3.88 10^6/uL (4.1-5.3); Red Cell Distribution Width 16.5 % (12.1-15.1); White Blood Count 8.7 10^3/uL (4.0-10.0)
[2020-02-03 05:24] LABS: INR 1.12 (0.8-1.2)
[2020-02-03 05:36] LABS: Alanine Aminotransferase 567 U/L (0-33); Albumin Level 3.9 g/dL (3.5-5.2); Alkaline Phosphatase 90 IU/L (35-105); Anion Gap 14.7 (5-19); Aspartate Amino Transferase 375 U/L (0-32); Blood Urea Nitrogen 4 mg/dL (6-20); Calcium 8.8 mg/dL (8.5-10.5); Carbon Dioxide 21 mmol/L (22-29); Chloride 109 mmol/L (98-107); Globulin 2.3 g/dL (1.3-4.6); Glomerular Filtration Rate 93.2 mL/min (90-130); Glucose 110 mg/dL (65-115); Osmolality Calculated 288 mOsm/kg (285-295); Potassium 3.7 mmol/L (3.5-5.1); Sodium 141 mmol/L (136-145); Total Bilirubin 0.2 mg/dL (0.15-1.2); Total Protein 6.2 g/dL (6.6-8.7)
--- NOTE | 2020-02-03 06:30 | P.PN_ITS ---
Subjective Subjective: Interval history: Patient overall feels much better She responded very well to mag citrate Liver function tests are trending down and normalization of leukocytosis Vitals/I&O/Wt Last Vital Signs Temp 98.3 F 02/03/20 04:00 Pulse 77 02/03/20 04:00 Resp 16 02/03/20 04:00 BP 115/72 02/03/20 04:00 Pulse Ox 99 02/03/20 04:00 02/02/20 02/02/20 02/03/20 14:59 22:59 06:59 Intake Total 706.667 / 815.176 5885 / 3232.092 4926 / 3611.667 Output Total 400 / 400 700 / 1100 600 / 1700 Balance 306.667 / 306.667 485 / 482.364 2736 / 1911.667 Weight last 48 hrs Weight 158 lb Physical Exam Narrative: EXAM NARRATIVE: Patient is conscious alert oriented X3 BMI 23 Head and neck examination PERRLA no masses no cervical lymphadenopathy no jaundice Abdomen nontender nondistended soft no organomegaly guarding or rigidity/no signs of peritonitis Data : 02/03/20 03:09 02/03/20 03:09 Micro: Microbiology 02/02/20 03:30 Blood Culture - Preliminary Blood NEGATIVE TO DATE 02/02/20 01:52 Blood Culture - Preliminary Blood NEGATIVE TO DATE A&P Assessment and plan (1) Abdominal pain: From surgical standpoint of view advance diet as tolerated with low-fat component Patient responded very well to mag citrate and was able to have multiple bowel movements Patient reported that she started an intense physical exercise program few days ago and afterwards she started to feel worse likely she got dehydrated. Continue stool softeners and will hold off on mag citrate From surgical standpoint of view i patient tolerates well p.o. intake and cleared from medical side can be discharged home and follow-up with me at the surgery office. Thank you for consulting general surgery to participate taking care Ms. Fleming Assurance and education All questions have been answered and all concerns have been addressed to patient's satisfaction. Status: Acute Qualifiers: Abdominal location: generalized Qualified Code(s): R10.84 - Generalized abdominal pain Attestations Medical Necessity Statement*: Per hospitalist service Time Spent in Patient Care: (>than 50% of time spent in counselling and/or direct pt care on unit) . Coding Level of Care Code Acute Exhibit Display Representative for Chg Fwd Diagnoses Abdominal pain R10.84 Abdominal location: generalized
[2020-02-03 06:41] LABS: HIV 1 & 2 Antibody Non-Reactive (Non-Reactiv); HIV 1 & 2 Antigen Non-Reactive (Non-Reactiv)
[2020-02-03 07:30] VITALS: BP 118/73; PULSE 70; RESP 18; TEMP 36.7; O2SAT 97
--- NOTE | 2020-02-03 11:23 | PC.CHAP ---
Pastoral Care Encounter/Spiritual Assessment Type of Contact [] Declined rental clerk visit [] Patient/Family/Request visit [] Outpatient visit [] Follow-up visit [] Physician referral [] Code/Alert [] Routine visit [X] Staff referral [] Actively dying [] Patient sleeping [] Family support [] [] Out of room [] Palliative care [] [] Receiving care in room [] Pre-surgical visit [] Trauma [] Long length of stay [] ICU visit [] Other: Relational/Emotional Strength [X] Patient feels connected with others/family/visitors/staff [] Distress [] Loneliness/isolation [] Abandonment Spirituality of Patient [X] Person of Lori [] Attends Sabianist of their Lori [X] Believes in Prayer [] Reads Bible or Methodist materials [] There are Spiritual issues to be addressed Dehairing Machine Tender Interventions [X] Prayer [X] Active listening [X] Non-anxious presence [] Spiritual/emotional support [] Crisis/trauma care [] Spiritual counseling [] Bereavement support [] Provided bereavement packet [] Provided Bible/devotional materials [] Provided toy/stuffed animal, coloring book to patient or family member [] Provided Communion [] Anointing/[place] [] Salvation [X] Completed spiritual assessment [] Other: Impact on Illness or Injury [] Angry [] Fearful [X] Anxious [] Often cries [] Exhaustion [] Unable to work [] Unable to attend christianity [] Unable to walk/stand [] Unable to read [] Unable to drive [] Unable to eat/drink [] Unable to sleep [] Unable to be with family [] Patient intubated [] Other: Summary: Nurse asked if I was willing to gown up to see this patient. Patient had an acute episode of abdominal pain. No cause yet determined but a few labs had been elevated (liver enzymes and WBCs) per patient report. These labs are now decreasing, and she is feeling better. She is baffled and concerned about what might have caused the pain; she hopes for an answer. She is also pending COVID testing so while it seems unlikely, she is nervous while those results are pending. Time spent with patient: 20 - 30 mins
[2020-02-03 11:26] VITALS: BP 121/74; PULSE 65; RESP 18; TEMP 36.9; O2SAT 99
[2020-02-03 14:40] LABS: Coronavirus Lab Test PTC SEE REPORT
[2020-02-03 15:42] VITALS: BP 110/73; PULSE 66; RESP 18; TEMP 36.9; O2SAT 98
--- NOTE | 2020-02-03 19:30 | P.PN_ITS ---
Subjective Subjective: Interval history: Improving Liver function today, reports that nausea is resolved, able to have multiple bowel movements today. Appetite is back, she is able to tolerate po intake today. 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 Due to this she takes a low-dose aspirin. Status: Acute (5) Syncope: Status: Acute Qualifiers: Syncope type: unspecified Qualified Code(s): R55 - Syncope and collapse (6) Liver lesion: Intermediate density 1.7 x 1.3 cm mass in the posterior superior aspect of the right lobe of the liver. Per with radiology probably benign, possibly hemangioma. Did not appear like liver abscess. Please follow-up final abdominal ultrasound study. Please consider additional evaluation, possibly MRI depending on clinical findings. does relate that she has history of liver hemangioma in the past. Status: Acute (7) Leukocytosis, unspecified: Status: Acute Qualifiers: Leukocytosis type: unspecified Qualified Code(s): D72.829 - Elevated white blood cell count, unspecified (8) Constipation: Status: Acute Qualifiers: Constipation type: unspecified constipation type Qualified Code(s): K59.00 - Constipation, unspecified (9) Ileus, unspecified: Status: Acute Additional A&P Information Patient admitted with c/o abdominal pain, nausea, vomiting and possible syncope. During course of evaluation found to have focal ileus, myrna portal edema and acute hepatitis # Acute hepatitis Unclear etiology - Acute hepatitis panel incl hep A IgM, HbS Ag, HepB core Ab, and Hep C Ab negative. Hiv negative. Monospot negative. COVID 19 negative. Appears that hepatitis may still be viral hepatitis, k[place] given other findings of abdominal p ain, nausea, vomiting, which togethe may represnt viral gatsroenteritides. - May have been related to preformed toxins in frozen food - Autoimmune screen pending - Patient reports starting an intense exercise regimen one week prior and feels she sargent snot adequately hydrate. Possible that dehydration from this or hypotension during her syncopal episode may have caused a transient hepatic injury. - Above discussed with GI/hepatology construction technology instructor at [facility], labs not c/w acute hepatic failure. - LFTs trending down today, ,will continue to monitor -patient reports clinical improvement today # constipation, resolved after mag citrate # Syncope: appears to be vasovagal episode per reported history # incidental hepatic lesion whch appears to be hemangioma: outpatient work up an d follow up # H/o splenectomy and thrombocytosis # Leukocytosis, given h/o splenectomy, initially concern for sepsis, however given that WBC count has trended down quickly, blood culture is negative, she is afebrile, more likely that this may have been a stress reaction vs 2/2 dehydration D/c antibiotics today and monitor off abx for the next 24 hrs Full code Attestations Medical Necessity Statement*: Trending liver enzymes, monitoring off abx in post splenectomy patient with leukocytosis Coding Level of Care Code Acute Oracle Bpm Consultant for [facility] Fwd Diagnoses Acute hepatitis B17.9 Abdominal pain R10.84 Abdominal location: generalized H/O splenectomy Z90.81 Thrombocytosis D47.3 Syncope R55 Syncope type: unspecified Liver lesion K76.9 Leukocytosis, unspecified D72.829 Leukocytosis type: unspecified Constipation K59.00 Constipation type: unspecified constipation type Ileus, unspecified K56.7
[2020-02-03 20:00] VITALS: BP 131/85; PULSE 74; RESP 14; TEMP 36.8; O2SAT 97
[2020-02-04] VITALS: BP 112/70; PULSE 69; RESP 20; TEMP 36.8; O2SAT 99
[2020-02-04 04:00] VITALS: BP 116/75; PULSE 67; RESP 16; TEMP 36.8; O2SAT 97
[2020-02-04 05:19] LABS: Alanine Aminotransferase 381 U/L (0-33); Albumin Level 3.8 g/dL (3.5-5.2); Alkaline Phosphatase 84 IU/L (35-105); Anion Gap 14.7 (5-19); Aspartate Amino Transferase 134 U/L (0-32); Blood Urea Nitrogen 4 mg/dL (6-20); Calcium 8.7 mg/dL (8.5-10.5); Carbon Dioxide 24 mmol/L (22-29); Chloride 106 mmol/L (98-107); Globulin 2.8 g/dL (1.3-4.6); Glomerular Filtration Rate 93.2 mL/min (90-130); Glucose 115 mg/dL (65-115); Osmolality Calculated 289 mOsm/kg (285-295); Potassium 3.7 mmol/L (3.5-5.1); Sodium 141 mmol/L (136-145); Total Bilirubin 0.2 mg/dL (0.15-1.2); Total Protein 6.6 g/dL (6.6-8.7)
[2020-02-04 08:00] VITALS: BP 121/87; PULSE 69; RESP 20; TEMP 36.7; O2SAT 95
--- NOTE | 2020-02-04 10:58 | PC.CHAP ---
Pastoral Care Encounter/Spiritual Assessment Type of Contact [] Declined hand scudder visit [] Patient/Family/Request visit [] Outpatient visit [X] Follow-up visit [] Physician referral [] Code/Alert [] Routine visit [] Staff referral [] Actively dying [] Patient sleeping [] Family support [] [] Out of room [] Palliative care [] [] Receiving care in room [] Pre-surgical visit [] Trauma [] Long length of stay [] ICU visit [] Other: Relational/Emotional Strength [X] Patient feels connected with others/family/visitors/staff [] Distress [] Loneliness/isolation [] Abandonment Spirituality of Patient [X] Person of Lori [] Attends Caodaism of their Lori [X] Believes in Prayer [X] Reads Bible or Baptism materials [] There are Spiritual issues to be addressed School Bus Driver/Teacher Assistant Interventions [X] Prayer [X] Active listening [X] Non-anxious presence [X] Spiritual/emotional support [] Crisis/trauma care [] Spiritual counseling [] Bereavement support [] Provided bereavement packet [X] Provided Bible/devotional materials [] Provided toy/stuffed animal, coloring book to patient or family member [] Provided Communion [] Anointing/[place] [] Salvation [] Completed spiritual assessment [] Other: Impact on Illness or Injury [] Angry [] Fearful [] Anxious [] Often cries [] Exhaustion [] Unable to work [] Unable to attend jain [] Unable to walk/stand [] Unable to read [] Unable to drive [] Unable to eat/drink [] Unable to sleep [] Unable to be with family [] Patient intubated [] Other: Summary: Pt feels well. She had not yet met with the dr this morning to learn lab results. She is BORED. I offered a Daily Bread, and she gladly accepted. We joined in prayer for acceptance of the mystery illness and to be able to see what positives have come from the experience. Time spent with patient: 20 mins
[2020-02-04 11:49] VITALS: BP 128/78; PULSE 64; RESP 16; TEMP 36.7; O2SAT 98
--- NOTE | 2020-02-04 12:39 | P.DS_ITS ---
Discharge Providers Date of Admission: 02/02/20 05:49 Date of Discharge: February 04, 2020 Attending Provider at Admission: Mani Valdez Attending Provider at Discharge: Kimmy Xiao MD Diagnoses at Discharge Discharge Diagnosis (1) Acute hepatitis: Status: Acute (2) Abdominal pain: Status: Acute Qualifiers: Abdominal location: generalized Qualified Code(s): R10.84 - Generalized abdominal pain (3) H/O splenectomy: Status: Acute (4) Thrombocytosis: Status: Acute (5) Syncope: Status: Acute Qualifiers: Syncope type: unspecified Qualified Code(s): R55 - Syncope and collapse (6) Liver lesion: Status: Acute (7) Leukocytosis, unspecified: Status: Acute Qualifiers: Leukocytosis type: unspecified Qualified Code(s): D72.829 - Elevated white blood cell count, unspecified (8) Constipation: Status: Acute Qualifiers: Constipation type: unspecified constipation type Qualified Code(s): K59.00 - Constipation, unspecified (9) Ileus, unspecified: Status: Acute Reason for Visit Reason for Visit: abd pain Hospital Course Discharge Summary: Laurel Fleming is a 39 year old female with history of splenectomy, thrombocytosis for which she is on ASA 81mg, came to the hospital after feeling unwell immediately after eating a frozen dinner of broccoli and rice with nausea, vomiting, malaise, feeling weak and cold. Subsequently reportedly found her by the toilet passed out, which appears to be a vasovagal syncopal episode, possibly from retching and vomiting. On evaluation, she was found to have acute hepatitis of unclear etiology. Acute hepatitis panel incl hep A IgM, HbS Ag, HepB core Ab, and Hep C Ab negative. HIV negative. Monospot negative. COVID 19 negative. Appears that hepatitis may still be viral hepatitis, [place] given other findings of abdominal pain, nausea, vomiting, which together may represnt viral gatsroenteritides. May have been related to preformed toxins in frozen food. Autoimmune screen pending, to be followed up with PCP.Patient reports starting an intense exercise regimen one week prior and feels she sargent snot adequately hydrate. Possible that dehydration from this or hypotension during her syncopal episode may have caused a transient hepatic injury.Above discussed with GI/hepatology defensive fire control systems operator at [facility], labs not concerning for acute hepatic failure, but likely to represent hepatitis. LFTs are now trending down. T.bili and ALP have remained normal during course of admission, as has INR. No encephalopathy. Her CT abdomen had showed fecalization of small bowel due to severe constipation. She was seen by surgery, advised mag citrate, which has eased her constipation. She feels well at the time of discharge, nausea has resolved and she is eating well. Hospital course otherwise notable for Leukocytosis, given h/o splenectomy, initially concern for sepsis, however given that WBC count has trended down quickly from 24 to 8 within a day, blood culture is negative, she is afebrile, more likely that this may have been a stress reaction vs 2/2 dehydration. Abx were discontinued 24 hrs prior to discharge and patient continues to do well. Incidentally noted is intermediate density 1.7 x 1.3 cm mass in the posterior superior aspect of the right lobe of the liver. Per radiology probably benign, possibly hemangioma. Did not appear like liver abscess. does relate that she has history of liver hemangioma in the past. This will need follow up as an outpatient. Physical Exam Narrative: EXAM NARRATIVE: GEN: Awake, alert and oriented, no acute distress CVS: S1S2 N RS: CTA B/L Abd: Soft, nt/nd , bs+ WIND TURBINE INSTALLER: no focal neuro deficits Discharge Data Data Completed and Pending: Completed Studies During Hospitalization Category Date Time Status CT abdomen pelvis w con* [id number] Stat Cat Scan 02/02/20 03:[address] head wo con* 7 045 Routine Cat Scan 02/02/20 06:48 Completed XR chest 1V ira ble [id number] Stat Exams 02/02/20 02:06 Completed US abdomen comple te* [id number] Urgent Ultrasound 02/02/20 02:06 Completed Pending at discharge Category Date Time Status GREGG Profile Rheum atology AM LABS Lab 02/03/20 03:09 Received Blood Culture Sta t Lab 02/02/20 03:30 Results EBV IGG & IGM Sta t Lab 02/02/20 14:54 Received Labs from last 24 hours 02/04/20 02/02/20 04:13 18:51 Sodium 141 Potassium 3.7 Chloride 106 Carbon Dioxide 24 Anion Gap 14.7 BUN 4 L Creatinine 0.7 GFR Calculation 93.2 Glucose 115 Calculated Osmolal ity 289 Calcium 8.7 Total Bilirubin 0.2 AST 134 H ALT 381 H Alkaline Phosphata se 84 Total Protein 6.6 Albumin 3.8 Globulin 2.8 Nasal/Oral COVID-1 9 PCR See report Vitals: Last Vital Signs Temp 98.0 F 02/04/20 11:49 Pulse 64 02/04/20 11:49 Resp 16 02/04/20 11:49 BP 128/78 02/04/20 11:49 Pulse Ox 98 02/04/20 11:49 Discharge Plan Discharge Patient Disposition: Home, Self-Care Condition: Stable Prescriptions: No Action No Known Home Medications RF: 0 Discharge Orders: Discharge Order (Routine); Ordered 02/04/20 Ordered By: Kimmy Xiao Other Ambulatory Orders: Complete Blood Count w/Auto (Routine) Timeframe: 20200206 Location: Determined by Patient Ordered By: Kimmy Xiao Comprehensive Metabolic Panel (Routine) Timeframe: 20200206 Facility: [facility] - Location: Lab - Main Lab Ordered By: Kimmy Xiao Referrals: Liang Malhotra MD [Physician] - (Return to surgery office in 10 days) Malia Baca MD [Family Provider] - 1-3 days (post hospital follow up for acute hepatitis, Needs repeat LFT and WBC monitoring. ) Discharge Diet: Advance as tolerated Discharge Activity: Resume usual activity Activity Restrictions/Additional Instructions: Avoid taking tylenol Discharge Attestations Time Spent in Discharge Care*: less than 30 min Quality Metrics Clinical Quality Measures During this hospital stay, did patient experience: None Coding Level of Care Code Acute Superintendent Fish Hatchery for g Fwd Diagnoses Acute hepatitis B17.9 Abdominal pain R10.84 Abdominal location: generalized H/O splenectomy Z90.81 Thrombocytosis D47.3 Syncope R55 Syncope type: unspecified Liver lesion K76.9 Leukocytosis, unspecified D72.829 Leukocytosis type: unspecified Constipation K59.00 Constipation type: unspecified constipation type Ileus, unspecified K56.7
[2020-02-04 13:02] VITALS: BP 128/78; PULSE 64; RESP 16; TEMP 36.7; O2SAT 98
[2020-02-06 06:53] LABS: EBV IGM TEST <36.00 U/mL
== END 2020-02-04 13:45 | disposition home or self-care (01) | DRG 390 ==
LOC: ER 01:55 → MEDSURG 06:10
PROVIDERS: Physician Assistant; Admitting Provider Internal Medicine; Emergency Provider Emergency Medicine; Family Provider Family Medicine; Visit Provider Student in an Organized Health Care Education/Training Program
DX: K56.7 Ileus, unspecified (principal); D47.3 Essential (hemorrhagic) thrombocythemia; K76.9 Liver disease, unspecified; K59.00 Constipation, unspecified; Z79.82 Long term (current) use of aspirin; Z90.81 Acquired absence of spleen; E86.0 Dehydration
CPT/HCPCS: 12345; 36415; 70450; 71045; 74177; 76700; 80053; 80076; 80307; 81003; 82140; 83605; 83615; 83690; 84145; 84703; 85025; 85610; 86308; 86677; 86705; 86706; 86709; 86803; 87040; 87340; 87635; 87804; 87806; 96372; 96375; 99282; J1644; J2270; J2405; J2543; J3370; J7050; J7799; Q9967; S0030

== ENCOUNTER 2023-09-29 13:20 | Outpatient (CLI) | payer OTHER, SELFPAY ==
--- NOTE | 2023-09-29 13:37 | MR_ITS ---
WS: [id number] MRI CERVICAL SPINE NONCONTRAST TECHNIQUE: Sagittal T1, T2 and STIR imaging. Axial T2, gradient, and fiesta imaging. CLINICAL INFORMATION: RADICULOPATHY,CERVICAL REGION/CERVICALGIA COMPARISON: None. FINDINGS: Straightening of the normal cervical lordosis. Disc bulging worse at C5-6 with central disc protrusio n and slight contact of the cervical cord. C2-C3: Mild facet arthropathy. Spinal canal and foramen are patent. C3-C4: Mild facet arthropathy. Spinal canal and foramen are patent. C4-C5: Mild facet arthropathy. Spinal canal and foramen are patent. C5-C6: Central disc osteophyte protrusion with slight indentation of the cervical cord. Mild central canal stenosis. Mild facet arthropathy. Moderate LEFT and no significant RIGHT foraminal narrowing. C6-C7: Shallow central disc osteophyte protrusion. Spinal canal is patent. Foramen are patent. Mild f acet arthropathy. C7-T1: Spinal canal and foramen are patent. Visualized brain stem structures: Normal. Prevertebral soft tissues: Normal. IMPRESSION: 1. Straightening of the normal cervical lordosis. Disc bulging worse at C5-6 with a central disc ost eophyte protrusion. 2. Central disc osteophyte protrusion C5-C6 with indentation on the cervical cord and mild central c anal stenosis. Moderate LEFT bony foraminal narrowing at this level. 3. Shallow central disc protrusion C6-C7. Spinal canal is patent. 4. Multilevel mild facet arthropathy described above.
== END 2023-09-29 13:21 | disposition home or self-care (01) ==
LOC: RAD 13:30
PROVIDERS: Family Provider Family Medicine; PCP Family Medicine; Visit Provider Family Medicine
DX: M50.123 Cervical disc disorder at C6-C7 level with radiculopathy (principal); M25.78 Osteophyte, vertebrae; M48.02 Spinal stenosis, cervical region; M47.22 Other spondylosis with radiculopathy, cervical region; M47.814 Spondylosis without myelopathy or radiculopathy, thoracic region
CPT/HCPCS: 72141

== ENCOUNTER 2023-10-11 08:51 | Oncology outpatient (recurring) (ONCR) | payer OTHER, SELFPAY ==
[2023-10-11 10:00] VITALS: BP 118/80; PULSE 66; RESP 16; TEMP 36.7; O2SAT 98
[2023-10-11] MEDS: sodium chloride 0.9% 250 ML 50 ML IV (10:13)
[2023-10-11] MEDS: iron sucrose 100 MG in sodium chloride 0.9% (100 ml) 100 ML 420 MG IV (10:22)
[2023-10-11 10:58] VITALS: BP 126/85; PULSE 64; RESP 16; TEMP 36.6; O2SAT 99
== END 2023-10-14 23:59 | disposition home or self-care (01) ==
PROVIDERS: Family Provider Family Medicine; PCP Family Medicine; Visit Provider Family Medicine
DX: D64.9 Anemia, unspecified (principal)
CPT/HCPCS: 96365; J1756; J7050

== ENCOUNTER 2023-11-09 15:10 | Oncology outpatient (recurring) (ONCR) | payer OTHER, SELFPAY ==
[2023-11-09 15:39] VITALS: BP 132/70; PULSE 72; RESP 16; TEMP 36.6; O2SAT 100
[2023-11-09] MEDS: iron sucrose 100 MG in sodium chloride 0.9% (100 ml) 100 ML 200 MG IV (15:49)
[2023-11-09] MEDS: sodium chloride 0.9% 250 ML 75 ML IV (15:49)
[2023-11-09 16:47] VITALS: BP 134/87; PULSE 66; O2SAT 99
== END 2023-11-14 23:59 | disposition home or self-care (01) ==
LOC: ONCMED 15:11
PROVIDERS: Family Provider Family Medicine; PCP Family Medicine; Visit Provider Family Medicine
DX: D50.9 Iron deficiency anemia, unspecified (principal)
CPT/HCPCS: 96365; J1756; J7050

== ENCOUNTER 2024-03-20 09:07 | Outpatient (RCR) | payer OTHER, SELFPAY | END 2024-04-15 23:59 | disposition home or self-care (01) | LOC: SPT 09:07 | PROVIDERS: Family Provider Family Medicine; PCP Family Medicine; Visit Provider Internal Medicine Cardiovascular Disease | DX: M50.30 Other cervical disc degeneration, unspecified cervical region (principal) | CPT/HCPCS: 97110; 97140; 97161; G0283 ==

== ENCOUNTER 2024-04-16 06:00 | Outpatient (RCR) | payer OTHER, SELFPAY | END 2024-04-24 23:59 | disposition home or self-care (01) | LOC: SPT 06:00 | PROVIDERS: Family Provider Family Medicine; PCP Family Medicine; Visit Provider Internal Medicine Cardiovascular Disease | DX: M50.30 Other cervical disc degeneration, unspecified cervical region (principal) | CPT/HCPCS: 97110; 97140; G0283 ==

== ENCOUNTER 2024-07-10 08:27 | Oncology outpatient (recurring) (ONCR) | payer OTHER, SELFPAY ==
[2024-06-22 08:18] LABS: Basophils # 0.1 10^3/uL (0.0-0.1); Basophils % 1.2 %; Eosinophils # 0.4 10^3/uL (0.0-0.8); Eosinophils % 4.3 %; Hematocrit 32.8 % (36-47); Lymphocytes # 2.1 10^3/uL (0.8-4.8); Lymphocytes % 20.6 %; Mean Corpuscular HGB Conc 28.7 g/dL (30-55); Mean Corpuscular Volume 69.6 fl (85-98); Mean Platelet Volume 9.9 fL (7.4-10.4); Monocytes # 1.1 10^3/uL (0.2-0.9); Monocytes % 10.2 %; Neutrophils # 6.52 10^3/uL (1.8-7.7); Neutrophils % 63.1 %; Nucleated Red Blood Cells % 0.4 %; Platelet Count 827 10^3/cmm (157-399); Red Blood Count 4.71 10^6/uL (3.85-5.65); Red Cell Distribution Width 19.2 % (12.1-15.1); Reticulocyte % 1.5 % (0.5-2.0); White Blood Count 10.32 10^3/uL (3.29-11.43)
[2024-06-22 08:58] LABS: Alanine Aminotransferase 10 U/L (0-33); Albumin Level 4.4 g/dL (3.5-5.2); Alkaline Phosphatase 86 U/L (35-105); Anion Gap 12.1 (5-19); Aspartate Amino Transferase 13 U/L (0-32); Blood Urea Nitrogen 13 mg/dL (6-20); Calcium 8.7 mg/dL (8.5-10.5); Carbon Dioxide 29 mmol/L (22-29); Chloride 102 mmol/L (98-107); Creatinine Clr Calc Pharmacy 117.1847; Globulin 2.3 g/dL (1.3-4.6); Glomerular Filtration Rate 90.9 mL/min (90-130); Glucose 100 mg/dL (65-115); Lactate Dehydrogenase 178 U/L (135-214); Osmolality Calculated 288 mOsm/kg (285-295); Potassium 4.1 mmol/L (3.5-5.1); Sodium 139 mmol/L (136-145); Total Bilirubin 0.2 mg/dL (0.15-1.2); Total Iron Binding Capacity 434 mcg/dl; Total Protein 6.7 g/dL (6.6-8.7)
[2024-06-22 09:11] LABS: Vitamin B12 291 pg/mL (232-1245)
[2024-06-22 09:15] LABS: Ferritin 9 ng/mL (15-150); Iron 20 ug/dL (37-145); Percent Saturation 4.6 % (20-50); Unsaturated Iron Binding 414 ug/dL (112-347)
[2024-06-28 13:39] LABS: Soluble Transferrin Receptor 4.32 mg/L (0.76-1.76)
[2024-07-03 09:16] VITALS: BP 131/79; PULSE 71; RESP 18; TEMP 36.4; O2SAT 98
[2024-07-03] MEDS: iron sucrose 200 MG in sodium chloride 0.9% (100 ml) 100 ML 220 MG IV (09:29)
[2024-07-03 10:03] VITALS: BP 130/72; PULSE 75; TEMP 36.6; O2SAT 99
[2024-07-10 08:40] VITALS: BP 138/88; PULSE 73; RESP 16; O2SAT 99
[2024-07-10] MEDS: iron sucrose 200 MG in sodium chloride 0.9% (100 ml) 100 ML 220 MG IV (09:09)
[2024-07-10] MEDS: cyanocobalamin 1,000 mcg/mL SDV 1000 MCG IM (09:58)
[2024-07-10 09:59] VITALS: BP 146/64; PULSE 71; RESP 16; TEMP 36.4; O2SAT 99
== END 2024-07-15 23:59 | disposition home or self-care (01) ==
PROVIDERS: Family Provider Family Medicine; PCP Family Medicine; Visit Provider Internal Medicine Hematology & Oncology
DX: D51.9 Vitamin B12 deficiency anemia, unspecified (principal); Z79.899 Other long term (current) drug therapy; Z53.9 Procedure and treatment not carried out, unspecified reason
CPT/HCPCS: 36415; 80053; 82607; 82728; 82746; 83010; 83540; 83550; 83615; 84238; 85025; 85045; 96365; 96372; J1756; J3420

== ENCOUNTER 2024-07-27 10:32 | Day surgery (SDC) | payer OTHER, SELFPAY ==
[2024-07-27] VITALS (9 sets, daily range): BP systolic 109–184; BP diastolic 75–98; PULSE 55–83; RESP 16–18; TEMP 36.2–36.7; O2SAT 95–99; BMI 27.8
--- NOTE | 2024-07-27 01:43 | W.PM.OPSFHP ---
Same Day Surgery H&P Indication for Procedure/HPI DATE OF PROCEDURE: July 27, 2024 CHIEF COMPLAINT/INDICATIONFOR SURGICAL PROCEDURE: menometrorrhagia PREOP DIAGNOSIS: menometrorrhagia PLANNED PROCEDURE: Operation Date: 07/27/24 12:00 Proposed Procedures p Hysteroscopy Hysteroscopy w/ Endometrial Sampling 65896, 68120, N92.0(Not Applicable) - Jean Marie Joshi MD s Poylpectomy(Not Applicable) - Jean Marie Joshi MD s Placement of Intrauterine Device(Not Applicable) - Jean Marie Joshi MD 44 y.o. Periods heavy, irregular, and prolonged Medications/Allergies* Home Medications Medication Instructions Recorded Confirmed Type sertraline 100 mg tablet 100 mg PO DAILY 06/22/24 07/20/24 History Allergies/Adverse Reactions Allergy/AdvReac Type Severity Reaction Status Date / Time No Known Allergies Allergy Verified 07/26/24 12:02 Pertinent History/Comorbid Conditions* Medical History (Updated 07/27/24 @ 01:39 by Jean Marie Joshi MD) Thrombocytosis Surgical History (Updated 02/02/20 @ 02:11 by Gretel Portillo) H/O splenectomy Family History (Updated 02/14/20 @ 15:43 by Silvana Millan RN) Cancer Father Sarcoma Leukemia Denies family history of Anesthesia complication Bleeding disorder Social History Smoking and tobacco/nicotine status: never used tobacco/nicotine Alcohol intake: current Alcohol intake frequency: holidays/special occasions only Substance/Drug Use: never Household members: spouse Marital status: Current occupational status: other 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
--- NOTE | 2024-07-27 10:24 | W.PM.OPSUD ---
Surgery/Procedure H&P Update DATE OF PROCEDURE: July 27, 2024 DATE H&P PERFORMED: 07/27/24 H&P UPDATE INFORMATION: I have reviewed H&P completed within last 30 days, I have examined patient prior to procedure and No changes to prior documentation PREOP DIAGNOSIS: menometrorrhagia PLANNED PROCEDURE: Operation Date: 07/27/24 12:00 Proposed Procedures p Hysteroscopy Hysteroscopy w/ Endometrial Sampling 78751, 94519, N92.0(Not Applicable) - Jean Marie Joshi MD s Poylpectomy(Not Applicable) - Jean Marie Joshi MD s Placement of Intrauterine Device(Not Applicable) - Jean Marie Joshi MD
[2024-07-27 10:57] LABS: OR HCG Qualitative Urine Negative (Negative)
[2024-07-27] MEDS: sodium chloride 0.9% 1,000 ML 30 ML IV (10:58)
--- NOTE | 2024-07-27 11:20 | W.PM.OPSUD ---
Surgery/Procedure H&P Update DATE OF PROCEDURE: July 27, 2024 DATE H&P PERFORMED: 07/11/24 H&P UPDATE INFORMATION: I have reviewed H&P completed within last 30 days, I have examined patient prior to procedure and No changes to prior documentation PREOP DIAGNOSIS: menometrorrhagia PLANNED PROCEDURE: Operation Date: 07/27/24 12:00 Proposed Procedures p Hysteroscopy Hysteroscopy w/ Endometrial Sampling 55218, 70207, N92.0(Not Applicable) - Jean Marie Joshi MD s Poylpectomy(Not Applicable) - Jean Marie Joshi MD s Placement of Intrauterine Device(Not Applicable) - Jean Marie Joshi MD
--- NOTE | 2024-07-27 12:10 | PM.OP ---
Operative Report Date of procedure: July 27, 2024 Pre-op diagnosis: abnormal uterine bleeding, menometrorrhagia Post-op diagnosis: abnormal uterine bleeding, menometrorrhagia endometrial polyp Post-op findings: Uterus sounded to 8 cm + approximately 3 cm broad-based endometrial polyp Small amount of endometrial tissue Otherwise normal endometrial cavity Procedure done: hysteroscopy Endometrial sampling and polypectomy with Myosure Curettage of uterus Placement of mirena intrauterine device Implants: mirena intrauterine device Specimens removed/disposition: endometrial tissue Surgeon: Jean Marie Joshi MD Anesthesia: MAC Estimated blood loss (mL): 0 Complications: none Findings: Uterus sounded to 8 cm + approximately 3 cm broad-based endometrial polyp Small amount of endometrial tissue Otherwise normal endometrial cavity Condition: stable Disposition: PACU Brief History: 44 y.o. with menometrorrhagia Procedure: Informed consent signed. Patient was taken to the operating room. Anesthesia was induced. Patient was placed in dorsolithotomy position, prepped and draped for hysteroscopy. A bivalve speculum was placed in the vagina. The anterior lip of the cervix was grasped with a sharp-toothed tenaculum. The uterus was sounded to 8 cm. The cervix was serially dilated with Hegar dilators. . A hysteroscope was placed into the endometrial cavity. There was an approximately 3 cm broad-based polyp on the posterior wall of the endometrial cavity. There was a small amount of endometrial tissue. Otherwise, the endometrial cavity was seen to be normal. The Myosure device was used to remove the endometrial polyp. The hysteroscope was then removed. Endometrial curettage was done gently with a sharp curette. Endometrial tissue was sent to pathology. The mirena intrauterine device was then prepared, placed into the endometrial cavity and deployed. A 3-4 cm string was left at the cervical os. The sharp-toothed tenaculum was removed. There was no bleeding from the endometrial cavity or cervix. The patient was then placed supine and awakened and taken to the PACU. Postop condition: stable EBL: 0 cc Sponge and instruments counts were normal x 2 Complications: none
--- NOTE | 2024-07-27 13:40 | ANE.PACU2 ---
Inpatient post-anesthesia follow up: Airway intact: Yes Vital signs: Temperature 97.4 F Pulse Rate 60 Respiratory Rate 16 Blood Pressure 134/89 Pulse Oximetry 98 Oxygen Delivery Me thod Room Air Oxygen Flow Rate Fraction of Inspir ed Oxygen Hydration adequate: Yes Nausea and vomiting: No Pain level: 1 Mental status: Baseline
== END 2024-07-27 13:40 | disposition home or self-care (01) ==
PROVIDERS: Student in an Organized Health Care Education/Training Program; Family Provider Family Medicine; PCP Family Medicine; Visit Provider Obstetrics & Gynecology
PROC: 0UJD8ZZ Inspection of Uterus and Cervix, Via Natural or Artificial Opening Endoscopic (ICD-10-PCS; CPT 58555; principal; 2024-07-27 11:50)
PROC: (CPT 58558; 2024-07-27 11:50)
PROC: (CPT 58300; 2024-07-27 11:50)
DX: N92.1 Excessive and frequent menstruation with irregular cycle (principal); N84.0 Polyp of corpus uteri
CPT/HCPCS: 58558; 58300; 81025; 88305; J1100; J1885; J2405; J2704; J3010; J7030

== ENCOUNTER 2024-07-31 08:00 | Oncology outpatient (recurring) (ONCR) | payer OTHER, SELFPAY ==
[2024-07-20 08:51] LABS: Basophils # 0.1 10^3/uL (0.0-0.1); Basophils % 1.2 %; Eosinophils # 0.2 10^3/uL (0.0-0.8); Eosinophils % 2.2 %; Hematocrit 35.2 % (36-47); Lymphocytes # 1.7 10^3/uL (0.8-4.8); Mean Corpuscular HGB Conc 29.8 g/dL (30-55); Mean Corpuscular Hemoglobin 21.6 pg (27-33); Mean Corpuscular Volume 72.6 fl (85-98); Mean Platelet Volume 10.5 fL (7.4-10.4); Monocytes # 0.7 10^3/uL (0.2-0.9); Monocytes % 10.8 %; Neutrophils # 4.03 10^3/uL (1.8-7.7); Neutrophils % 60.5 %; Nucleated Red Blood Cells % 0 %; Platelet Count 632 10^3/cmm (157-399); Red Blood Count 4.85 10^6/uL (3.85-5.65); Red Cell Distribution Width 25.7 % (12.1-15.1); Reticulocyte % 1.1 % (0.5-2.0); White Blood Count 6.67 10^3/uL (3.29-11.43)
[2024-07-20] MEDS: iron sucrose 200 MG in sodium chloride 0.9% (100 ml) 100 ML 220 MG IV (09:05)
[2024-07-20 09:17] LABS: Alanine Aminotransferase 15 U/L (0-33); Albumin Level 4.4 g/dL (3.5-5.2); Alkaline Phosphatase 88 U/L (35-105); Aspartate Amino Transferase 17 U/L (0-32); Blood Urea Nitrogen 15 mg/dL (6-20); Carbon Dioxide 24 mmol/L (22-29); Chloride 105 mmol/L (98-107); Creatinine Clr Calc Pharmacy 137.1008; Ferritin 122 ng/mL (15-150); Globulin 3.2 g/dL (1.3-4.6); Glomerular Filtration Rate 108.6 mL/min (90-130); Glucose 93 mg/dL (65-115); Iron 69 ug/dL (37-145); Lactate Dehydrogenase 170 U/L (135-214); Osmolality Calculated 289 mOsm/kg (285-295); Percent Saturation 18.4 % (20-50); Sodium 139 mmol/L (136-145); Total Bilirubin 0.5 mg/dL (0.15-1.2); Total Iron Binding Capacity 375 mcg/dl; Total Protein 7.6 g/dL (6.6-8.7); Unsaturated Iron Binding 306 ug/dL (112-347)
[2024-07-20 09:32] LABS: Vitamin B12 472 pg/mL (232-1245)
[2024-07-20 09:42] VITALS: BP 141/89; PULSE 62; RESP 16; TEMP 36.4; O2SAT 97
[2024-07-20 09:54] LABS: Folate Level 15.3 ng/mL (4.8-37.3)
[2024-07-24 08:20] VITALS: BP 137/84; PULSE 73; RESP 15; TEMP 36.2; O2SAT 98
[2024-07-24] MEDS: cyanocobalamin 1,000 mcg/mL SDV 1000 MCG IM (08:28)
[2024-07-24] MEDS: iron sucrose 200 MG in sodium chloride 0.9% (100 ml) 100 ML 220 MG IV (08:36)
[2024-07-24 09:15] VITALS: BP 144/87; PULSE 64; RESP 16; TEMP 36.8; O2SAT 96
--- NOTE | 2024-07-25 10:00 | MM_ITS ---
WS: [id number] BILATERAL 3D TOMOSYNTHESIS DIGITAL SCREENING MAMMOGRAPHY WITH CAD CLINICAL INFORMATION: Z12.39 - Encounter for other screening for malignant neop... HISTORY: Screening mammogram. No current complaints. COMPARISON: Baseline TECHNIQUE: Bilateral CC and MLO views. FINDINGS: The breasts are composed of heterogeneous fibroglandular density tissue, which can limit the detectio n of small underlying mass lesions. No suspicious mass, asymmetry, calcifications, or architectural d istortion. No evidence of malignancy. Normal size lymph nodes in the axilla. MM/MM [facility] tomosynthesis [id number] IMPRESSION: DENSITY: The breasts are heterogeneously dense, which may obscure small masses. BI-RADS: 2 - Benign FOLLOW UP: 1 Year Follow-up Recommend return to annual screening mammography.
[2024-07-26 12:59] LABS: Soluble Transferrin Receptor 3.59 mg/L (0.76-1.76)
[2024-07-31 08:08] VITALS: BP 133/90; PULSE 77; RESP 16; TEMP 35.9; O2SAT 98
[2024-07-31] MEDS: iron sucrose 200 MG in sodium chloride 0.9% (100 ml) 100 ML 220 MG IV (08:27)
[2024-07-31] MEDS: cyanocobalamin 1,000 mcg/mL SDV 1000 MCG IM (08:29)
[2024-07-31 09:09] VITALS: BP 137/85; PULSE 66; TEMP 36.1; O2SAT 99
== END 2024-08-15 23:59 | disposition home or self-care (01) ==
PROVIDERS: Internal Medicine Hematology & Oncology; Family Provider Family Medicine; PCP Family Medicine; Visit Provider Obstetrics & Gynecology
DX: D51.9 Vitamin B12 deficiency anemia, unspecified; Z53.9 Procedure and treatment not carried out, unspecified reason; Z79.899 Other long term (current) drug therapy
CPT/HCPCS: 77063; 77067; 80053; 82607; 82728; 82746; 83010; 83540; 83550; 83615; 84238; 85025; 85045; 96365; 96372; J1756; J3420

== ENCOUNTER 2024-08-04 08:14 | Outpatient (CLI) | payer OTHER, SELFPAY ==
--- NOTE | 2024-08-04 08:00 | NM_ITS ---
WS: [id number] NUCLEAR MEDICINE HIDA SCAN CLINICAL INFORMATION: abdominal pain, nausea and vomiting TECHNIQUE: Following intravenous administration of mCi of technetium 99m mebrofenin, images of the ab domen were obtained over the course of 60 minutes. Next, gallbladder ejection fraction was determined by obtaining preprandial and one-hour postprandial images of the gallbladder following oral ingestio n of Ensure. FINDINGS: Normal hepatic uptake at 5 minutes. Normal hepatic excretion. Normal common bile duct and small bowel activity. Gallbladder is visualized by 15 minutes. No evidence of acute cholecystitis. Gallbladder ejection fraction 81% within normal limits. No evidence of chronic cholecystitis. NM/NM hepatobiliary w phar* [id number] IMPRESSION: 1. No evidence of acute or chronic cholecystitis. 2. Gallbladder ejection fraction 81% within normal limits.
== END 2024-08-04 08:15 | disposition home or self-care (01) ==
PROVIDERS: PCP Family Medicine; Visit Provider Nurse Practitioner
DX: R10.84 Generalized abdominal pain (principal)
CPT/HCPCS: 78227; A9537

== ENCOUNTER 2024-08-24 12:54 | Oncology outpatient (recurring) (ONCR) | payer OTHER, SELFPAY ==
[2024-08-24 13:56] LABS: Reticulocyte % 0.7 % (0.5-2.0)
[2024-08-24 14:03] LABS: Bilirubin Urine Negative (Negative); Blood Urine Negative (Negative); Glucose Urine UA Negative (Normal); Ketones Urine Negative (Negative); Leukocyte Esterase Urine Negative (Negative); Nitrate Urine Negative (Negative); Protein Urine Negative (Negative); Specific Gravity, Urine 1.027 (1.005-1.030); Urine Appearance Clear (CLEAR); Urine Color Yellow (Yellow); Urobilinogen Urine 0.2 mg/dL (Negative)
[2024-08-24 14:06] LABS: Add Urine Microscopic? YES; Bacteria Urine None Seen /hpf; Hyaline Casts Urine 0.81 /lpf; RBC Urine 0-2 /hpf (0-2); Squamous Epithelial Cell Urine 0-5 /hpf (0-5); WBC Urine 0-5 /hpf (0-5)
[2024-08-24 14:07] LABS: Erythrocyte Sedimentation Rate 15 mm/hr (0-15)
[2024-08-24 14:11] LABS: D Dimer 0.54 ug/mLFEU (0-0.59)
[2024-08-24 14:23] LABS: Alanine Aminotransferase 17 U/L (0-33); Albumin Level 4.5 g/dL (3.5-5.2); Alkaline Phosphatase 81 U/L (35-105); Anion Gap 13.5 (5-19); Aspartate Amino Transferase 22 U/L (0-32); Blood Urea Nitrogen 16 mg/dL (6-20); Calcium 8.9 mg/dL (8.5-10.5); Carbon Dioxide 25 mmol/L (22-29); Chloride 106 mmol/L (98-107); Globulin 2.6 g/dL (1.3-4.6); Glomerular Filtration Rate 90.9 mL/min (90-130); Glucose 91 mg/dL (65-115); Lactate Dehydrogenase 170 U/L (135-214); Osmolality Calculated 291 mOsm/kg (285-295); Potassium 4.5 mmol/L (3.5-5.1); Sodium 140 mmol/L (136-145); Thyroid Stimulating Hormone 0.93 uIU/mL (0.27-4.20); Total Bilirubin 0.3 mg/dL (0.15-1.2); Total Protein 7.1 g/dL (6.6-8.7); Uric Acid 2.4 mg/dL (2.4-5.7)
[2024-08-24 14:35] LABS: Basophils # 0.1 10^3/uL (0.0-0.1); Basophils % 1.3 %; Eosinophils # 0.2 10^3/uL (0.0-0.8); Eosinophils % 2.3 %; Hematocrit 40.8 % (36-47); Lymphocytes # 1.9 10^3/uL (0.8-4.8); Lymphocytes % 27.4 %; Mean Corpuscular HGB Conc 30.9 g/dL (30-55); Mean Corpuscular Hemoglobin 24.5 pg (27-33); Mean Corpuscular Volume 79.2 fl (85-98); Mean Platelet Volume 10.5 fL (7.4-10.4); Monocytes # 0.7 10^3/uL (0.2-0.9); Monocytes % 10.3 %; Neutrophils % 58.3 %; Nucleated Red Blood Cells % 0 %; Platelet Count 587 10^3/cmm (157-399); Red Blood Count 5.15 10^6/uL (3.85-5.65); White Blood Count 7.02 10^3/uL (3.29-11.43)
[2024-08-26 20:49] LABS: Beef (27) IgE <0.10 kU/L; Beef Class 0; Lamb (F88) IgE <0.10 kU/L; Lamb Class 0; Pork (F26) IgE <0.10 kU/L; Pork Class 0
[2024-08-30 12:13] LABS: Galactose-alpha-1,3 IgE <0.10 kU/L (<0.10)
== END 2024-09-15 23:59 | disposition home or self-care (01) ==
PROVIDERS: Nurse Practitioner; Family Provider Family Medicine; PCP Family Medicine; Visit Provider Internal Medicine
DX: D50.0 Iron deficiency anemia secondary to blood loss (chronic) (principal); R92.333 Mammographic heterogeneous density, bilateral breasts; D72.829 Elevated white blood cell count, unspecified; D47.3 Essential (hemorrhagic) thrombocythemia; Z79.899 Other long term (current) drug therapy; D51.9 Vitamin B12 deficiency anemia, unspecified; R55 Syncope and collapse
CPT/HCPCS: 36415; 80053; 81001; 83520; 83615; 84443; 84550; 85025; 85045; 85378; 85651; 86003; 86008

== ENCOUNTER 2024-11-23 12:01 | Oncology outpatient (recurring) (ONCR) | payer OTHER, SELFPAY ==
[2024-11-23 13:06] LABS: Reticulocyte % 1.6 % (0.5-2.0)
[2024-11-23 13:08] LABS: Basophils # 0.1 10^3/uL (0.0-0.1); Eosinophils # 0.1 10^3/uL (0.0-0.8); Eosinophils % 1.5 %; Hematocrit 39.3 % (36-47); Lymphocytes # 1.8 10^3/uL (0.8-4.8); Lymphocytes % 21.9 %; Mean Corpuscular HGB Conc 33.8 g/dL (30-55); Mean Corpuscular Hemoglobin 29.5 pg (27-33); Mean Corpuscular Volume 87.1 fl (85-98); Mean Platelet Volume 10.8 fL (7.4-10.4); Monocytes # 0.9 10^3/uL (0.2-0.9); Monocytes % 10.9 %; Neutrophils # 5.26 10^3/uL (1.8-7.7); Neutrophils % 64.3 %; Nucleated Red Blood Cells % 0 %; Platelet Count 504 10^3/cmm (157-399); Red Blood Count 4.51 10^6/uL (3.85-5.65); Red Cell Distribution Width 15.9 % (12.1-15.1); White Blood Count 8.17 10^3/uL (3.29-11.43)
[2024-11-23 13:11] LABS: Erythrocyte Sedimentation Rate 10 mm/hr (0-15)
[2024-11-23 13:24] LABS: Alanine Aminotransferase 8 U/L (0-33); Albumin Level 4.3 g/dL (3.5-5.2); Alkaline Phosphatase 70 U/L (35-105); Anion Gap 15.8 (5-19); Aspartate Amino Transferase 17 U/L (0-32); Blood Urea Nitrogen 14 mg/dL (6-20); Calcium 8.9 mg/dL (8.5-10.5); Carbon Dioxide 24 mmol/L (22-29); Chloride 105 mmol/L (98-107); Creatinine Clr Calc Pharmacy 136.3725; Ferritin 74 ng/mL (15-150); Globulin 2.9 g/dL (1.3-4.6); Glomerular Filtration Rate 108.6 mL/min (90-130); Glucose 82 mg/dL (65-115); Iron 87 ug/dL (37-145); Lactate Dehydrogenase 222 U/L (135-214); Osmolality Calculated 290 mOsm/kg (285-295); Percent Saturation 28.8 % (20-50); Potassium 4.8 mmol/L (3.5-5.1); Sodium 140 mmol/L (136-145); Total Bilirubin 0.4 mg/dL (0.15-1.2); Total Iron Binding Capacity 302 mcg/dl; Total Protein 7.2 g/dL (6.6-8.7); Unsaturated Iron Binding 215 ug/dL (112-347)
[2024-11-23 13:34] LABS: Slide Review Slide Review Perform
[2024-11-27 13:54] LABS: Soluble Transferrin Receptor 1.08 mg/L (0.76-1.76)
== END 2024-12-13 23:59 | disposition home or self-care (01) ==
PROVIDERS: Family Provider Family Medicine; PCP Family Medicine; Visit Provider Internal Medicine
DX: D50.0 Iron deficiency anemia secondary to blood loss (chronic) (principal); D51.9 Vitamin B12 deficiency anemia, unspecified
CPT/HCPCS: 36415; 80053; 82728; 83010; 83520; 83540; 83550; 83615; 84238; 85025; 85045; 85651

== ENCOUNTER 2025-03-08 10:42 | Oncology outpatient (recurring) (ONCR) | payer OTHER, SELFPAY ==
[2025-03-08 11:07] LABS: Hematocrit 42.5 % (36-47); Hemoglobin 14.20 g/dL (11.27-16.99); Mean Corpuscular HGB Conc 33.4 g/dL (30-55); Mean Corpuscular Hemoglobin 29.6 pg (27-33); Mean Corpuscular Volume 88.7 fl (85-98); Nucleated Red Blood Cells % 0 %; Platelet Count 445 10^3/cmm (157-399); Red Blood Count 4.79 10^6/uL (3.85-5.65); White Blood Count 6.35 10^3/uL (3.29-11.43)
[2025-03-08 11:35] LABS: Alanine Aminotransferase 13 U/L (0-33); Albumin Level 4.5 g/dL (3.5-5.2); Alkaline Phosphatase 74 U/L (35-105); Anion Gap 16.4 (5-19); Aspartate Amino Transferase 20 U/L (0-32); Blood Urea Nitrogen 10 mg/dL (6-20); Calcium 8.9 mg/dL (8.5-10.5); Carbon Dioxide 23 mmol/L (22-29); Chloride 103 mmol/L (98-107); Creatinine Clr Calc Pharmacy 131.2217; Ferritin 72 ng/mL (15-150); Globulin 2.7 g/dL (1.3-4.6); Glucose 98 mg/dL (65-115); Iron 67 ug/dL (37-145); Osmolality Calculated 285 mOsm/kg (285-295); Potassium 4.4 mmol/L (3.5-5.1); Sodium 138 mmol/L (136-145); Total Iron Binding Capacity 268 mcg/dl; Total Protein 7.2 g/dL (6.6-8.7); Unsaturated Iron Binding 201 ug/dL (112-347)
[2025-03-08 11:50] LABS: Slide Review Slide Review Perform
== END 2025-03-15 23:59 | disposition home or self-care (01) ==
PROVIDERS: Family Provider Family Medicine; PCP Family Medicine; Visit Provider Internal Medicine
DX: D50.0 Iron deficiency anemia secondary to blood loss (chronic) (principal); D51.9 Vitamin B12 deficiency anemia, unspecified; R16.0 Hepatomegaly, not elsewhere classified
CPT/HCPCS: 36415; 80053; 82728; 83010; 83540; 83550; 83615; 85025; 85045